=== PATIENT | female | born 1940 | race African-American/Black ===

== ENCOUNTER 2017-03-20 12:36 | Emergency (ER) | payer MEDICARE, MEDICAID | END 2017-03-20 14:43 | disposition home or self-care (01) | LOC: ERS 12:36 | DX: B86 Scabies (principal); E78.5 Hyperlipidemia, unspecified; I11.0 Hypertensive heart disease with heart failure; I50.9 Heart failure, unspecified; E11.9 Type 2 diabetes mellitus without complications; Z87.891 Personal history of nicotine dependence | CPT/HCPCS: 36416; 99283 ==

== ENCOUNTER 2017-07-09 09:39 | Emergency (ER) | payer MEDICARE ==
[2017-07-09 10:39] LABS: Bilirubin Negative (Negative); Blood, Urine Negative (Negative); Clarity CLEAR (Clear); Glucose, Urine (Dipstick) Negative (Negative); Leukocyte Negative (Negative); Nitrite Negative (Negative); Protein, Urine (Dipstick) 30 mg/dL (Neg-Trace); Specific Gravity, Urine 1.022 (1.002-1.036)
[2017-07-09 10:40] LABS: Bacteria/HPF None Seen HPF (None Seen); Hyaline Casts/LPF 0-3 HYALINE CAST LPF (0-3 Hyaline); Squamous Epithelial 0-3 HPF (0-3); WBC/HPF 0-3 HPF (0-3)
[2017-07-09 11:56] LABS: #Eosinphils 0.1 thou/uL (0.0-0.7); #Lymphocytes 2.2 thou/uL (1.20-3.40); #Monocytes 0.5 thou/uL (0.11-0.59); #Neutrophils 4.4 thou/uL (1.40-6.50); %Basophils 0.4 % (0.0-1.0); %Eosinophils 0.9 % (0.0-10.0); %Lymphocytes 30.2 % (21.0-51.0); %Monocytes 7.2 % (0.0-10.0); %Neutrophils 61.3 % (42.0-75.0); Hemoglobin 13.7 g/dL (12.0-16.0); Mean Corpuscular HGB CONC 32.1 g/dL (32.0-36.0); Mean Corpuscular Hemoglobin 29.4 pg (27.0-31.0); Mean Corpuscular Volume 91.5 fl (81.0-99.0); Mean Platelet Volume 7.8 fL (7.4-10.4); Platelet Count 270 thou/uL (130-400); RBC Distribution Width 15.4 % (11.5-14.5); Red Blood Cell (RBC) Count 4.67 mill/uL (4.20-5.40); White Blood Cell (WBC) Count 7.2 thou/uL (4.8-10.8)
[2017-07-09 12:29] LABS: ALT (SGPT) 8 U/L (8-55); AST (SGOT) 11 U/L (5-34); Albumin 4.1 g/dL (3.4-4.8); Alkaline Phosphatase 116 U/L (40-150); Anion Gap 11 mmol/L (10-20); BUN (Urea Nitrogen) 11 mg/dL (9.8-20.1); Bilirubin, Total 0.6 mg/dL (0.2-1.2); Calc. Creatinine Clearance 0 mL/min (70-130); Calcium 9.5 mg/dL (7.8-10.44); Carbon Dioxide 25 mmol/L (23-31); Chloride 108 mmol/L (98-107); Estimated GFR-MDRD 90; Globulin 3.8 g/dL (2.4-3.5); Glucose 109 mg/dL (83-110); Lipase 16 U/L (8-78); Protein, Total 7.9 g/dL (6.0-8.3); Sodium 140 mmol/L (136-145)
--- NOTE | 2017-07-09 14:56 | CT ---
CT ABDOMEN AND PELVIS WITH IV CONTRAST: DATE: 07/09/17. HISTORY: Abdominal pain and lower back pain which started yesterday evening. Back pressure and stomach pressu re when urinating. COMPARISON: 07/27/14. FINDINGS: The lung bases are clear aside from minimal atelectasis present. The heart is mildly enlarged. Vascular calcifications are seen in the abdominal aorta and involving the iliac arteries. There is occlusion of the left common iliac artery. This occlusion was not pres ent on the study in 2014. Post cholecystectomy changes are noted. There are multiple abdominal masses seen throughout the mesentery, the largest conglomeration of mass is seen within the anterior aspect lower abdomen measuring 11.4 cm x 3.8 cm. However, multiple mass es are seen throughout the mesentery including mass adjacent to the lower descending colon and left p ericolic gutter. There are also low-density masses along the anterior and right anterolateral margin s of the liver. Findings are most suggestive of peritoneal carcinomatosis. There is a large heterogeneous mass in the right aspect of the pelvis measuring 9.2 cm x 3.8 cm, whic h is contiguous with a cystic and solid mass in the right anterolateral upper pelvis measuring 7 cm x 4.7 cm. Findings could be related to a right ovarian neoplastic process. There is prominent thickening involving the gastric antrum which is more thickened than expected for incomplete distention. Further evaluation with endoscopy is recommended. There is a small hiatal hernia. There is colonic diverticulosis. There is no evidence of a bowel ob struction at this time. The spleen and pancreas as well as bilateral kidneys demonstrate a normal CT appearance. There are bilateral adrenal masses which were also seen on the prior MRI abdomen on 11/08/15 and MRI c haracteristics most compatible with adrenal adenomas were noted on that exam. The urinary bladder has a normal CT appearance. There is evidence of hysterectomy. Degenerative changes are noted in the spine. IMPRESSION: 1. Peritoneal carcinomatosis with scattered masses seen throughout the abdomen including the upper q uadrants bilaterally, adjacent to the liver, adjacent to descending colon, and in the midline of the lower abdomen/upper pelvis. 2. Heterogeneous mass in the right pelvis which is contiguous with a cystic and solid mass in the up per lateral right pelvis. A right ovarian neoplastic process is a consideration. 3. Thickening involving the gastric antrum and pylorus. This is more thickened than typically expec max for incomplete distention. Further evaluation with endoscopy is suggested. 4. Bilateral renal masses shown to represent adrenal adenomas on the prior MRI in 2016. 5. Cardiomegaly. 6. Colonic diverticulosis. 7. Occlusion of the left common iliac artery. 8. The above findings were discussed with Dr. Mauricio in the emergency department on 07/09/17 at 141 4 hours. CODE CR POS: NING
== END 2017-07-09 15:25 | disposition home or self-care (01) ==
LOC: ERS 09:39
DX: R19.04 Left lower quadrant abdominal swelling, mass and lump (principal); I11.0 Hypertensive heart disease with heart failure; I50.9 Heart failure, unspecified; E11.9 Type 2 diabetes mellitus without complications; E78.5 Hyperlipidemia, unspecified; F32.9 Major depressive disorder, single episode, unspecified; Z87.891 Personal history of nicotine dependence
CPT/HCPCS: 36415; 74177; 80053; 81003; 81015; 83690; 85025

== ENCOUNTER 2017-08-05 13:14 | Outpatient (CLI) | payer MEDICARE, MEDICAID ==
--- NOTE | 2017-08-05 15:56 | RAD ---
SINGLE CONTRAST BARIUM ENEMA: Date: 08-05-17 History: Rectal pain, peritoneal carcinomatosis, incomplete colonoscopy secondary to sigmoid colonic tortuosity. FINDINGS: Review of a recent CT examination of the abdomen and pelvis performed 07-09-17 demonstrates numerous m esenteric masses throughout the abdomen/pelvis, many of which are immediately adjacent to the colon. The cross tie turner supine frontal radiograph of the abdomen/pelvis demonstrates cholecystectomy clips in a non obstructed bowel gas pattern. There is atherosclerotic calcification of the abdominal aorta and the p elvic arterial structures and there are numerous calcifications in the pelvis suggesting phleboliths. A single contrast barium enema was performed. Contrast was administered in a retrograde fashion under gravity from the level of the rectum through the level of the distal small bowel. There is extensive diverticulosis throughout the descending colon and sigmoid colon. There is no obstructing mass within the colonic lumen. There is an area of incomplete opacification i n the region of the cecum inferiorly which is felt to most likely be secondary to extrinsic mass effe ct from a mesenteric lesion located within the right lower quadrant when correlating with the 07-09-17 examination. Secondary to single contrast nature of this exam and marked tortuosity, portions of the sigmoid colon and descending colon are not optimally assessed. This could obstruct a mucosal based l esion, but no obvious mucosal based lesion is seen. There is a probable area of extrinsic mass effect on the lateral aspect of the mid descending colon associated with a mesenteric mass as seen on recen t CT examination. This narrows the lumen of the descending colon, best seen on lateral image 6 of 9. IMPRESSION: 1. No obstructing colonic lesion is seen. There are areas of what appear to be extrinsic mass effect on the colon in the region of the cecum and in the region of the mid descending colon laterally. Thes e findings are felt to represent extrinsic compression from mesenteric masses as seen on recent CT. N o discrete mucosal based mass lesion within the colonic lumen is apparent. Colonic diverticulosis not ed. POS: NING
== END 2017-08-05 13:15 | disposition home or self-care (01) ==
LOC: RAD 13:14
PROVIDERS: ATTEND Internal Medicine Gastroenterology
DX: C78.6 Secondary malignant neoplasm of retroperitoneum and peritoneum (principal); K62.89 Other specified diseases of anus and rectum; K63.89 Other specified diseases of intestine; K63.9 Disease of intestine, unspecified; K57.30 Diverticulosis of large intestine without perforation or abscess without bleeding
CPT/HCPCS: 74270

== ENCOUNTER 2017-08-21 12:47 | Outpatient (CLI) | payer MEDICARE, MEDICAID ==
[2017-08-21 15:25] LABS: #Eosinphils 0.1 thou/uL (0.0-0.7); #Lymphocytes 1.7 thou/uL (1.20-3.40); #Monocytes 0.6 thou/uL (0.11-0.59); #Neutrophils 5.6 thou/uL (1.40-6.50); %Basophils 0.2 % (0.0-1.0); %Eosinophils 1.1 % (0.0-10.0); %Lymphocytes 21.3 % (21.0-51.0); %Monocytes 7.6 % (0.0-10.0); %Neutrophils 69.9 % (42.0-75.0); Hemoglobin 11.2 g/dL (12.0-16.0); Mean Corpuscular HGB CONC 31.2 g/dL (32.0-36.0); Mean Corpuscular Hemoglobin 27.6 pg (27.0-31.0); Mean Corpuscular Volume 88.3 fL (78.0-98.0); Mean Platelet Volume 7.6 fL (7.4-10.4); Platelet Count 525 thou/uL (130-400); RBC Distribution Width 15.6 % (11.5-14.5); Red Blood Cell (RBC) Count 4.05 mill/uL (4.20-5.40)
[2017-08-21 15:44] LABS: Anion Gap 17 mmol/L (10-20); BUN (Urea Nitrogen) 17 mg/dL (9.8-20.1); Calc. Creatinine Clearance 0 mL/min (70-130); Calcium 9.4 mg/dL (7.8-10.44); Carbon Dioxide 21 mmol/L (23-31); Chloride 103 mmol/L (98-107); Estimated GFR-MDRD 68; Glucose 145 mg/dL (83-110); Potassium 5.4 mmol/L (3.5-5.1); Sodium 136 mmol/L (136-145)
== END 2017-08-21 12:48 | disposition home or self-care (01) ==
LOC: LABBT 12:47
PROVIDERS: ATTEND Specialist
DX: Z01.818 Encounter for other preprocedural examination (principal); C56.9 Malignant neoplasm of unspecified ovary
CPT/HCPCS: 80048; 85025; 93005; 93010

== ENCOUNTER 2017-08-22 12:01 | Day surgery (SDC) | payer MEDICARE, MEDICAID ==
[2017-08-21 10:00] VITALS: BMI 22.8
[2017-08-22] MEDS ORDERED: CEFAZOLIN/Water 2 GM/20 ML SYRINGE ONE (12:54)
[2017-08-22] MEDS ORDERED: Ketorolac Tromethamine 30 MG/ML VIAL ONE (12:54)
[2017-08-22] MEDS ORDERED: Propofol 500 MG/50 ML VIAL ONE (14:10)
[2017-08-22] MEDS ORDERED: Fentanyl 100 MCG/2 ML VIAL ONE (14:10)
[2017-08-22] MEDS ORDERED: PROPOFOL 200 MG/20 ML VIAL ONE (14:38)
[2017-08-22] MEDS ORDERED: PHENYLEPHRINE-NS 100 MCG/ML 10 ML SYRINGE ONE (14:38)
[2017-08-22] MEDS ORDERED: Ondansetron HCl/PF 4 MG/2 ML Vial ONE (14:38)
--- NOTE | 2017-08-22 15:31 | RAD ---
ONE VIEW CHEST: HISTORY: Status post surgery. COMPARISON: None. FINDINGS: There appears to be residual barium in multiple left colonic diverticula. Elongation of the aorta. Normal cardiac silhouette. There appears to be a nodule in the left suprahilar region measuring 1.5 cm. Minimal blunting of the right costophrenic angle. Chronic changes in the lung parenchyma are montoya spected. Right-sided MediPort catheter with the distal tip projecting over the superior vena cava. No pneumothorax. IMPRESSION: 1. Right-sided MediPort catheter. No pneumothorax. 2. Left lung nodule, incompletely evaluated. Metastatic lesion is favored until proven otherwise. POS: REBECCA
--- NOTE | 2017-08-25 17:26 | OP ---
DATE OF SERVICE: 08/22/2017 PREOPERATIVE DIAGNOSES: Metastatic ovarian cancer. POSTOPERATIVE DIAGNOSIS: Metastatic ovarian cancer. OPERATION PERFORMED: Placement of right subclavian low-profile power compatible MediPort. SURGEON: Mark Acharya M.D. ANESTHESIA: Total intravenous anesthesia with local using 0.25% Marcaine with epinephrine. INDICATIONS: The patient is a 76-year-old black female. She was recently diagnosed with metastatic ovarian cancer. MediPort placement is requested for chemotherapy administration. DESCRIPTION OF OPERATION: Informed consent was obtained. The patient was taken to the operating mani m where total intravenous anesthesia was obtained with the patient in supine position. Right pericla vicular area was prepped with ChloraPrep and draped in sterile fashion. Local anesthetic was infiltr ated and a large gauge needle was passed under the clavicle in the subclavian vein. Guidewire was pa ssed through the needle and fluoroscopically confirmed to enter the superior vena cava. Additional l ocal anesthetic was infiltrated and transverse incision was created based on needle insertion site. A subcutaneous pocket was dissected inferiorly. Introducer dilator was passed over the guidewire und er fluoroscopic guidance. The guidewire and dilator were removed, and the catheter was passed throug h the introducer. The tip of the catheter was positioned at the atriocaval junction and the catheter was trimmed to the appropriate length and secured to the locking hub of the MediPort. The port was then placed in the subcutaneous pocket where it was secured to the pectoral fascia with 2 interrupted sutures of 3-0 Prolene. The incision was then closed in layers with 3-0 and 4-0 Monocryl. Addition al local anesthetic was infiltrated. The port was cannulated with a Borja needle and it aspirated bl ood freely and was flushed with heparinized saline. Dermabond was placed externally on the skin inci wanda. There were no complications. Blood loss was negligible. The patient tolerated the procedure well and was taken to recovery room in stable condition. FINDINGS: The port was placed uneventfully in the right subclavian vein. A low-profile port was fracisco ected. Her anatomy was unremarkable and the operation was performed without difficulty or blood loss . The patient tolerated the procedure well and was taken to recovery room in stable condition.
== END 2017-08-22 16:05 | disposition home or self-care (01) ==
LOC: SDC 12:01
PROVIDERS: ATTEND Specialist
PROC: 02HV33Z Insertion of Infusion Device into Superior Vena Cava, Percutaneous Approach (ICD-10-PCS; principal; 2017-08-22)
DX: C56.9 Malignant neoplasm of unspecified ovary (principal); C79.9 Secondary malignant neoplasm of unspecified site; E78.5 Hyperlipidemia, unspecified; I10 Essential (primary) hypertension; E11.9 Type 2 diabetes mellitus without complications; M19.90 Unspecified osteoarthritis, unspecified site; Z87.891 Personal history of nicotine dependence; Z79.84 Long term (current) use of oral hypoglycemic drugs; Z79.899 Other long term (current) drug therapy; Z88.2 Allergy status to sulfonamides; Z88.5 Allergy status to narcotic agent; Z88.8 Allergy status to other drugs, medicaments and biological substances
CPT/HCPCS: 36561; 71045; C1788; J0131; J1885; J2405; J2704; J3010

== ENCOUNTER 2017-08-27 09:28 | Day surgery (SDC) | payer MEDICARE, MEDICAID ==
[2017-08-27 09:48] VITALS: BP 189/88; TEMP 98.2
[2017-08-27] MEDS ORDERED: Famotidine/PF 20 mg/2ml Vial SLOW IVP SCH (10:15)
[2017-08-27] MEDS ORDERED: PALONOSETRON HCL 0.05 MG/ML 5 ML VIAL IVP SCH (10:15)
[2017-08-27] MEDS ORDERED: Pegfilgrastim 6 MG/0.6 ML Delivery Kit SQ SCH (10:15)
[2017-08-27] MEDS ORDERED: diphenhydrAMINE 50 MG/ML VIAL IVP SCH (10:15)
[2017-08-27] MEDS ORDERED: Dexamethasone 10 MG/ML VIAL SLOW IVP SCH (10:15)
[2017-08-27] MEDS ORDERED: CARBOPLATIN IVPB SCH (10:30)
[2017-08-27] MEDS ORDERED: SODIUM CHLORIDE 0.9% IVPB SCH (10:30)
[2017-08-27] MEDS ORDERED: cloNIDine 0.2 MG TAB PO SCH (14:30)
== END 2017-08-27 16:56 | disposition home or self-care (01) ==
LOC: ONC/OP 09:28
PROVIDERS: ATTEND Internal Medicine Hematology & Oncology
DX: Z51.11 Encounter for antineoplastic chemotherapy (principal); C56.1 Malignant neoplasm of right ovary; C78.89 Secondary malignant neoplasm of other digestive organs; E11.9 Type 2 diabetes mellitus without complications; E78.00 Pure hypercholesterolemia, unspecified; I10 Essential (primary) hypertension; M19.90 Unspecified osteoarthritis, unspecified site; F41.9 Anxiety disorder, unspecified; F32.9 Major depressive disorder, single episode, unspecified; K21.9 Gastro-esophageal reflux disease without esophagitis; I73.9 Peripheral vascular disease, unspecified; F17.200 Nicotine dependence, unspecified, uncomplicated; Z88.1 Allergy status to other antibiotic agents; Z88.5 Allergy status to narcotic agent
CPT/HCPCS: 36415; 80053; 82248; 83615; 84100; 84550; 96367; 96375; 96377; 96413; 96415; 96417; J1100; J1200; J1453; J1642; J2469; J2505; J7050; J9045; J9267; S0028

== ENCOUNTER 2017-09-17 11:38 | Day surgery (SDC) | payer MEDICARE, MEDICAID ==
[2017-09-17] MEDS ORDERED: PALONOSETRON HCL 0.05 MG/ML 5 ML VIAL IVP SCH (12:00)
[2017-09-17] MEDS ORDERED: Famotidine/PF 20 mg/2ml Vial SLOW IVP SCH (12:00)
[2017-09-17] MEDS ORDERED: Dexamethasone 10 MG/ML VIAL SLOW IVP SCH (12:00)
[2017-09-17] MEDS ORDERED: diphenhydrAMINE 50 MG/ML VIAL IVP SCH (12:00)
[2017-09-17] MEDS ORDERED: Sodium Chloride 0.9% 20 ML ONE (12:00)
[2017-09-17] MEDS ORDERED: Pegfilgrastim 6 MG/0.6 ML Delivery Kit SQ SCH (12:00)
[2017-09-17] MEDS ORDERED: SODIUM CHLORIDE 0.9% IVPB SCH (12:30)
[2017-09-17] MEDS ORDERED: CARBOPLATIN IVPB SCH (12:30)
[2017-09-17 15:50] VITALS: BP 153/69; TEMP 98.5
== END 2017-09-17 17:32 | disposition home or self-care (01) ==
LOC: ONC/OP 11:38
PROVIDERS: ATTEND Internal Medicine Hematology & Oncology
DX: Z51.11 Encounter for antineoplastic chemotherapy (principal); C56.1 Malignant neoplasm of right ovary; C78.89 Secondary malignant neoplasm of other digestive organs; E11.9 Type 2 diabetes mellitus without complications; E78.00 Pure hypercholesterolemia, unspecified; M19.90 Unspecified osteoarthritis, unspecified site; F41.9 Anxiety disorder, unspecified; F32.9 Major depressive disorder, single episode, unspecified; K21.9 Gastro-esophageal reflux disease without esophagitis; I73.9 Peripheral vascular disease, unspecified; F17.200 Nicotine dependence, unspecified, uncomplicated; Z88.5 Allergy status to narcotic agent; Z88.1 Allergy status to other antibiotic agents
CPT/HCPCS: 36415; 80053; 82248; 83615; 84100; 84550; 96367; 96375; 96377; 96413; 96415; A4216; J1100; J1200; J1453; J1642; J2469; J2505; J7050; J9045; J9267; S0028

== ENCOUNTER 2017-09-18 22:14 | Observation (INO) | payer MEDICARE, MEDICAID ==
[2017-09-18 23:04] LABS: Hemoglobin 11.3 g/dL (12.0-16.0); Mean Corpuscular HGB CONC 31.2 g/dL (32.0-36.0); Mean Corpuscular Hemoglobin 26.6 pg (27.0-31.0); Mean Corpuscular Volume 85.1 fL (78.0-98.0); Mean Platelet Volume 6.9 fL (7.4-10.4); Platelet Count 490 thou/uL (130-400); RBC Distribution Width 16.8 % (11.5-14.5); Red Blood Cell (RBC) Count 4.27 mill/uL (4.20-5.40); White Blood Cell (WBC) Count 20.3 thou/uL (4.8-10.8)
[2017-09-18 23:21] LABS: Band 6 % (5-11); Lymphocytes 4 % (21-51); MDiff Complete? YES; Monocytes 4 % (0-10); Neutrophil 86 % (42-75); PLT Morphology Comment Appears Increased
[2017-09-18 23:24] LABS: ALT (SGPT) 7 U/L (8-55); AST (SGOT) 13 U/L (5-34); Albumin 3.8 g/dL (3.4-4.8); Alkaline Phosphatase 119 U/L (40-150); Anion Gap 18 mmol/L (10-20); BUN (Urea Nitrogen) 24 mg/dL (9.8-20.1); Bilirubin, Total 0.4 mg/dL (0.2-1.2); Calc. Creatinine Clearance 0 mL/min (70-130); Calcium 10.1 mg/dL (7.8-10.44); Carbon Dioxide 23 mmol/L (23-31); Chloride 102 mmol/L (98-107); Estimated GFR-MDRD 72; Globulin 4.7 g/dL (2.4-3.5); Glucose 175 mg/dL (83-110); Potassium 4.4 mmol/L (3.5-5.1); Protein, Total 8.5 g/dL (6.0-8.3); Sodium 139 mmol/L (136-145)
[2017-09-18 23:29] LABS: CKMB 0.9 ng/mL (0-6.6); Troponin I Less than 0.010 ng/mL (< 0.028)
--- NOTE | 2017-09-18 23:54 | RAD ---
PORTABLE CHEST ONE VIEW: 09/18/17 at 10:54 p.m. HISTORY: Chest pain. FINDINGS: Comparison made with exam of 08/22/17. The heart size is borderline. A right subclavian Port-A-Cath remains in place. No lobar consolidation , pneumothoraces or pleural effusions are seen. The nodular density in the left lung noted on the pre vious study appears less prominent. The residual barium in the colonic diverticula in the left upper quadrant are again seen but decrease in quantity. IMPRESSION: No acute process. POS: REBECCA
[2017-09-19] MEDS ORDERED: Aspirin 325 MG TAB ONE (02:51)
[2017-09-19] MEDS ORDERED: Cefepime 2 GM VIAL ONE (02:51)
[2017-09-19] MEDS ORDERED: Nitroglycerin 2% Ointment 1 INCH/1 GM Packet ONE (02:51)
[2017-09-19 05:14] LABS: Troponin I 0.014 ng/mL (< 0.028)
[2017-09-19 06:03] VITALS: BMI 21.5
[2017-09-19 08:00] LABS: Troponin I Less than 0.010 ng/mL (< 0.028)
[2017-09-19] MEDS ORDERED: Acetaminophen 325 MG TAB PO PRN (09:02)
[2017-09-19] MEDS ORDERED: hydrALAZINE 20 MG/ML VIAL SLOW IVP PRN (09:02)
[2017-09-19] MEDS ORDERED: Benzonatate 100 MG CAP PO PRN (09:02)
[2017-09-19] MEDS ORDERED: Dextrose 50% Abboject 50 ML SYRINGE SLOW IVP PRN (09:02)
[2017-09-19] MEDS ORDERED: Loratadine 10 MG TAB PO PRN (09:02)
[2017-09-19] MEDS ORDERED: cloNIDine 0.1 MG TAB PO PRN (09:02)
[2017-09-19] MEDS ORDERED: Zolpidem Tartrate 5 MG TAB PO PRN (09:02)
[2017-09-19] MEDS ORDERED: Diabetic Tussin 200 MG/10 ML UDCUP PO PRN (09:02)
[2017-09-19] MEDS ORDERED: Senokot 8.6 MG TAB PO PRN (09:02)
[2017-09-19] MEDS ORDERED: HumaLOG 300 UNITS/3 ML VIAL SC PRN ×2 (09:02)
[2017-09-19] MEDS ORDERED: Ondansetron HCl/PF 4 MG/2 ML Vial IVP PRN (09:02)
[2017-09-19] MEDS ORDERED: Bisacodyl 5 MG TAB PO PRN (09:02)
[2017-09-19] MEDS ORDERED: Dextrose 5% in Water 1,000 ML IV PRN (09:02)
[2017-09-19] MEDS ORDERED: Nitroglycerin 0.4 MG TAB (25 Tab Bottle) SL PRN (09:02)
--- NOTE | 2017-09-19 09:39 | CT ---
PRELIMINARY REPORT/[facility]/EMERGENTY AFTER-HOURS PROCEDURE CT Angiography Chest With Intravenous Contrast CLINICAL HISTORY: 76 years old, female; Pain; Chest pain; Patient HX: Er 20; F76 reports to ed via ems C/O chest pain. Pt reports cp and pressure that started suddenly today after waking up from her nap around 19: 00-20: 00. Pt reports the pain has been persistent since waking up from her nap and the pain is centered to her sub sternal region. Pt reports is undergoing chemo for ovarian cancer. Last chemo iv treatment was yesterday. TECHNIQUE: Axial computed tomographic angiography images of the chest with intravenous contrast using pulmonary embolism protocol. MIP reconstructed images were created and reviewed. COMPARISON: No relevant prior studies available. FINDINGS: Pulmonary arteries: No pulmonary embolism. Aorta: Atherosclerotic disease of the thoracic aorta, without evidence of aneurysm or dissection. Lungs: 9 mm noncalcified nodule or small consolidation within the left upper lobe (series 2, image 26 ). Minimal bibasilar atelectasis and/or scarring. Pleural space: Normal. No significant effusion. No pneumothorax. Heart: Moderate three-vessel coronary artery atherosclerotic calcification. Mild four-chamber cardiac enlargement. Bones/joints: Multilevel thoracic spine degenerative changes. No acute fracture. No dislocation. Soft tissues: Normal. Lymph nodes: Normal. Liver: Abnormal low attenuation nodularity along the left hepatic lobe surface, the largest measuring approximately 10 mm, possibly metastases. Adrenals: Enlarged adrenal glands bilaterally, the left measuring 17 mm in diameter and the right huma suring 14 mm in diameter, not definitively characterized on this study. Intraperitoneal space: Metallic densities within the left upper abdomen of uncertain etiology. IMPRESSION: 1. No pulmonary embolism. 2. 9 mm noncalcified nodule or small consolidation within the left upper lobe (series 2, image 26). S mall pneumonia or carcinoma possible. Recommend further evaluation. 3. Abnormal low attenuation nodularity along the left hepatic lobe surface, the largest measuring maggie roximately 10 mm, possibly metastases. Recommend further evaluation. 4. Enlarged adrenal glands bilaterally, the left measuring 17 mm in diameter and the right measuring 14 mm in diameter, not definitively characterized on this study. Recommend further evaluation. 5. Incidental/non-acute findings are described above. Thank you for allowing us to participate in the care of your patient. Dictated and Authenticated by: Andrés Lion MD 09/19/2017 1:26 AM Central Time ([place] & [place]) FINAL REPORT CT ANGIOGRAM CHEST WITH CONTRAST: HISTORY: Evaluate for pulmonary embolism. Chest pain. COMPARISON: Chest radiograph from the prior day. TECHNIQUE: CT angiogram chest performed after the intravenous administration of contrast, with 3D rendering prov ided. FINDINGS/IMPRESSION: The findings and impression are concordant with the preliminary report.
[2017-09-19] MEDS ORDERED: Stress 600 With Zinc 1 TAB PO SCH (10:00)
[2017-09-19] MEDS ORDERED: cloNIDine 0.2 MG TAB PO SCH (10:00)
[2017-09-19] MEDS ORDERED: Simvastatin 5 MG TAB PO SCH (10:00)
[2017-09-19] MEDS ORDERED: Fish Oil 1,000 MG CAP PO SCH (10:00)
[2017-09-19] MEDS ORDERED: Gabapentin 300 MG CAP PO SCH (10:00)
[2017-09-19] MEDS ORDERED: Multivit, Therapeutic 1 TAB PO SCH (10:00)
[2017-09-19] MEDS: Sodium Chloride 0.9% 1,000 ML IV SCH (10:13)
[2017-09-19] MEDS ORDERED: ISOVUE-370 76%-LOCM 1 ML ONE (11:50)
--- NOTE | 2017-09-19 14:12 | HP ---
DATE OF ADMISSION: 09/19/2017 PRIMARY CARE PHYSICIAN: Jojo Quiroga M.D. CHIEF COMPLAINT: Chest pain. HISTORY OF PRESENT ILLNESS: Ms. Kessler is a very pleasant 76-year-old -[place] female with past medical history of recent diagnosis of stage III ovarian cancer who has been started on chemothe rapy recently, presented to the emergency room with above-mentioned complaint. History is mainly obt ained by the patient herself and electronic medical records have been reviewed. The patient's last c hemotherapy treatment was on 09/17/2017 and she went Neulasta placement on 09/18/2017, that was just yesterday. She has finished 2 cycles of chemotherapy so far. She is under the care of Dr. Perkins. She had a MediPort placement by Dr. Acharya in 08/25/2017. The patient reports that she has always had acid reflux issues. Yesterday, she was lying down when s he had sudden sharp pain that started low in her belly and went up her chest in the center. She stat es that she does not know how to describe the pain, but it was quite significant and woke her up from the sleep. It was in the middle of the day. She had some difficulty breathing at that time, but de nies any nausea or vomiting. She denies any arm or jaw claudication. She denies any radiation of th e pain. She states that she has had some symptoms in the past, but they are mainly with swallowing o f the food. She has been having acid reflux symptoms for years and has been noticing lately that she has been having difficulty swallowing the food down and feels that the food sometimes gets stuck in her chest and it hurts. She has otherwise no recent illnesses and has been feeling very well. She d enies any shortness of breath, cough, fever, chills, runny nose or sore throat. Upon presentation to the emergency room, she was hemodynamically stable with blood pressure of 135/73 and a pulse of 100. She was saturating 97% on room air and temperature 98.8. Her initial workup in cluded a 12-lead EKG, which did not show any significant changes, but some nonspecific T-wave changes . Normal sinus rhythm at 100 beats per minute. Her D-dimer was found to be elevated, so she underwe nt a CT angio in the emergency room to rule out PE. It was negative for pulmonary embolism, but was concerning for possible pneumonia versus nodular lesion in the left upper lobe, possible carcinoma. She was given empiric antibiotics in the form of cefepime and Levaquin and is now being admitted for further evaluation and care. She was found to have leukocytosis with WBCs of 20 with neutrophils of 84%, but in light of recent Neulasta yesterday, it is not clear if this is indicative of any active i nfection. PAST MEDICAL HISTORY: 1. 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 2. Diabetes mellitus. 3. Hypertension. 4. Dyslipidemia. 5. Arthritis. 6. Anxiety and depression. 7. Peripheral vascular disease. 8. Gastroesophageal reflux disease. PAST SURGICAL HISTORY: 1. Gallbladder removal. 2. Hysterectomy. 3. Tonsillectomy in 1949. 4. Colonoscopy in 2008. 5. Cardiac catheterization 1997 showed mild coronary artery disease. 6. Excision of lipoma over the right side. FAMILY HISTORY: Mother had a history of breast cancer. Father had lung cancer. Mother had hyperten wanda. One sibling with stomach cancer. SOCIAL HISTORY: She is and has 4 children. She lives with her family. She smokes half pack of cigarettes per day. She has no history of drug or alcohol abuse. ALLERGIES: CODEINE which causes nausea. CURRENT MEDICATIONS: Vitamin B complex, omega 3 fish oil daily, multivitamin daily, moexipril 15 mg daily, gabapentin 600 t.i.d., vitamin D3 1000 daily, Zocor 10 mg daily, potassium chloride 20 mEq alec ly, Farber as needed, Desyrel 50 mg at bedtime, clonidine 0.2 mg p.o. b.i.d. REVIEW OF SYSTEMS: A 12-point review of systems was done. It is negative except for those mentioned in the history and physical. LABORATORY DATA: CBC shows WBCs at 20.3, platelet count of 490, 86% neutrophils, hemoglobin 11.3. C oagulation studies showed a D-dimer elevated at 3.63. Serum chemistries show BUN of 21, creatinine 0 .9 with estimated GFR of 72. Her cardiac enzymes, troponin less than 0.010 x3. Her globulin slightl y elevated to 4.7. Chest x-ray by my review has no evidence to suggest any pleural effusion, edema o r infiltrate. CT angio is negative for any pulmonary embolism. There is a question of left lower lo be carcinomatous lesion versus pneumonia. Twelve lead EKG by my review shows nonspecific T-wave rosales ges, but sinus rhythm without any ST depression or elevation. PHYSICAL EXAMINATION: VITAL SIGNS: Most recent vital signs, temperature 98.6, pulse of 96, respirations 16, saturating 96% on room air, blood pressure 154/83. GENERAL: No acute distress, awake, alert, oriented x3. HEENT: Mucous membrane is moist and pink. No oral thrush. No oropharyngeal exudate or erythema. H ead is normocephalic, atraumatic. Pupils equal, reactive to light and accommodation. Extraocular mo vement intact. NECK: Supple without any lymphadenopathy, JVD or bruit. CHEST: Clear to auscultation without any wheezing, rales or rhonchi. Rhythm is regular without any murmur, rubs or gallops. ABDOMEN: Soft, nontender, nondistended, positive bowel sounds. She is tender to palpation in the ep igastric region and left upper quadrant. Epigastric region is more tender than the other areas. No suprapubic tenderness. EXTREMITIES: Free of any cyanosis, clubbing, or edema. NEUROLOGIC: Nonfocal. SKIN: Free of any rashes or bruises. Feels warm and dry to touch. PSYCHIATRIC: Normal affect. IMPRESSION AND PLAN: 1. Chest pain. Symptoms sound more concerning for gastroesophageal reflux disease versus esophagiti s or gastritis. The patient is having epigastric tenderness and getting symptoms of dysphagia. I do not believe that the patient has pneumonia at this time. I do not believe she has acute coronary sy ndrome. She never has had a cardiac workup done and is on chemotherapy. We will go ahead and get an echocardiogram for now. Avoid aspirin for now given her significant gastroesophageal reflux disease symptoms. We will consult request consultation with Gastroenterology for possible EGD to check for her symptoms of dysphagia. She most likely will need endoscopy with biopsy to rule out Navarrete's eso phagus as well. She will rule out esophageal compression from any extrinsic lymph nodes or masses gi rd her history of cancer. She is currently hemodynamically stable. We will check her lipid panel a s well. We will add a proton pump inhibitor to see if it will help with her GERD symptoms. 2. Leukocytosis. This is secondary to her Neulasta infusion yesterday. No signs or symptoms to sug gest infection. We will not institute antibiotics at this time, but obtain urinalysis as well as uri ne culture and blood culture. 3. Left upper lobe opacity. The patient clinically does not seem to have any pneumonia. The possib ility of carcinoma remains. We will consult Oncology for this reason as well as to make sure that th e patient does not need to be on antibiotics at this time. 4. Diabetes mellitus type 2. Restart home medications and add insulin sliding scale. Frequent Accu -Cheks. 5. Dyslipidemia. Resume her home medication of Zocor. 6. Hypertension, currently controlled. We will restart her moexipril for now as well as clonidine. 7. Deep venous thrombosis and gastrointestinal prophylaxis. 8. Code status: FULL CODE. Discussed with the patient. 9. P.r.n. medication order. DISPOSITION: Ms. Kessler is currently being admitted to the hospital for chest pain workup. Estimat ed length of stay is less than 2 midnights at this time.
[2017-09-19 14:27] LABS: Cardiac Risk 4.3 (Less than 4.5)
[2017-09-19] MEDS: Gabapentin 300 MG CAP PO SCH ×3 (14:55→22:07)
[2017-09-19 16:21] LABS: Bilirubin Negative (Negative); Blood, Urine Negative (Negative); Clarity CLEAR (Clear); Glucose, Urine (Dipstick) Negative (Negative); Leukocyte Negative (Negative); Nitrite Negative (Negative); Protein, Urine (Dipstick) 30 mg/dL (Neg-Trace); Specific Gravity, Urine 1.031 (1.002-1.036); Urobilinogen 0.2 mg/dL (0.2-1.0)
[2017-09-19 16:24] LABS: Bacteria/HPF None Seen HPF (None Seen); Hyaline Casts/LPF 7-10 HYALINE CAST LPF (0-3 Hyaline); Pathc Cast-AUWi Flag 1.74 (0-2.49); RBC/HPF 0-3 HPF (0-3); WBC/HPF 0-3 HPF (0-3)
--- NOTE | 2017-09-19 16:28 | CON ---
DATE OF CONSULTATION: 09/19/2017 REASON FOR CONSULTATION: Ovarian cancer. HISTORY OF PRESENT ILLNESS: Checo is a pleasant 76-year-old female with stage III ovarian cancer w bruna had cycle 2 of carboplatin and Taxol on 09/17/2017. She presented to the emergency mani this morning after having some sharp pain in her chest, it woke her up from her sleep. She does campos ve a history of reflux and has seen Dr. Her in the past. Had a recent EGD that showed gastritis an d Navarrete's esophagus. On presentation to the emergency room, she had a CT angio of her chest perfor med which showed no pulmonary emboli. Her white count was 20.3 with 86% neutrophils. She was admitt ed on observation for chest pain. The patient has been tolerating chemo. She presented with signifi cant abdominal discomfort and has been taking as needed [place] several times a day. Pain has diminish ed in starting treatment. She does complain of opiate associated constipation. She takes Dulcolax a nd Fleets enema routinely. She denies any complaints at this time. PAST MEDICAL HISTORY: 1. Stage III ovarian cancer. 2. Constipation from abdominal masses and narcotic use. 3. Gastroesophageal reflux disease. 4. Diabetes. 5. High blood pressure. 6. High cholesterol. 7. Peripheral vascular disease. 8. Anxiety. PAST SURGICAL HISTORY: 1. Cholecystectomy. 2. Hysterectomy. 3. Tonsillectomy. ALLERGIES: BACTRIM and CODEINE. HOME MEDICATIONS: 1. Clonidine daily 2. Gabapentin 600 mg t.i.d. 3. Glipizide 5 mg t.i.d. 4. Hydrocodone 5/325 p.r.n. 5. Moexipril 50 mg daily. 6. Prilosec daily. 7. Potassium chloride 20 mEq daily. 8. Simvastatin 20 mg daily. 9. Trazodone 50 mg daily. 10. Zofran p.r.n. FAMILY HISTORY: Mother had breast cancer. SOCIAL HISTORY: . Has 4 children, lives with her daughter. Current everyday smoker. No alc ohol or illicit drug use. REVIEW OF SYSTEMS: Ten point review of systems is negative except for noted in HPI. PHYSICAL EXAMINATION: VITAL SIGNS: Temperature is 98.6, pulse is 98, respiratory rate 16, BP is 154/83, she is 98% on room air. GENERAL: Well-developed, well-nourished female in no acute distress. HEENT: Normocephalic, atraumatic. Pupils are equal and reactive to light. NECK: Supple. CARDIOVASCULAR: Regular rate and rhythm. LUNGS: Clear. ABDOMEN: Soft, nontender, bowel sounds are positive. EXTREMITIES: No clubbing, cyanosis or edema. SKIN: No rash. HEMATOLOGIC: No petechia or purpura. NEUROLOGIC: Nonfocal. PSYCHIATRIC: She is alert and oriented. PERTINENT LABORATORY DATA AND X-RAYS: Current WBCs are 20.3, hemoglobin 11.3, hematocrit 36.3, plate let count is 490,000, 86% neutrophils, 6% bands, 4% lymphocytes. Sodium is 139, potassium 4.2, chlor cristino 102, CO2 is 23, BUN is 24, creatinine 0.91, calcium 10.1, bilirubin is 0.4, AST 13, ALT 7, alkali ne phosphatase is 119, serum total protein 8.5, albumin 3.8, globulin 4.7. ASSESSMENT AND PLAN: 1. Stage III ovarian cancer and chemotherapy with carboplatin and Taxol, recent cycle 2 completed week with Neulasta support. 2. History of esophageal reflux disease with recent EGD showing gastritis and Navarrete's esophagus. 3. Constipation from her ovarian cancer and narcotic usage. DISCUSSION: I felt that the patient's chest pain is not cardiac in nature, but likely secondary to h er chronic reflux. GI has been consulted for their opinion. The patient's labs are appropriate with no evidence of infection. Her leukocytosis is due to IV steroids received during treatment. We mariangel l continue to provide supportive care. Thank you for the consult.
[2017-09-19] MEDS ORDERED: Polyethylene Glycol 3350 17 GM Packet PO SCH (18:00)
[2017-09-19] MEDS ORDERED: traZODone HCl 50 MG TAB PO SCH (21:00)
[2017-09-19] MEDS: HYDROcodone/Acetaminophen 5/325 mg Tablet PO PRN (21:57)
[2017-09-19] MEDS: cloNIDine 0.2 MG TAB PO SCH (21:59)
--- NOTE | 2017-09-19 23:21 | CON ---
DATE OF CONSULTATION: 09/19/2017 REASON FOR CONSULTATION: Dysphagia and GERD. CONSULTING PHYSICIAN: Dr. Nona Mitchell. HISTORY OF PRESENT ILLNESS: The patient is a 76-year-old -[place] female with past medical h istory of stage III ovarian cancer status post chemotherapy (carboplatin and Taxol with most recent a dministration 2 days ago), congestive heart failure, diabetes, hypertension, hyperlipidemia, peripher al vascular disease and anxiety, presenting with complaints of chest pain. She had recently gone her most recent round of chemotherapy on 09/17/2017 with experiencing acute onset of midepigastric/subst ernal chest pain the following day that woke her from sleep. She described this pain as sharp, stabb ing in nature, located within the midepigastric region, nonradiating, intermittent and would reach of severity of 5-6/10. There were no clear alleviating or exacerbating factors; however, she does stat e that this pain is similar to the acid reflux symptoms she has had in the past. When concerning her acid reflux symptoms, she characterizes that as episodes of substernal pyrosis, regurgitation and ac id taste in her mouth. This will occur intermittently, but will occur more frequently with tomato ba sed products and spicy, greasy foods. She had recently been on famotidine for roughly the last 1-2 y ears, but was recently changed from famotidine to omeprazole approximately 1-[address] Her after her upper endoscopy. While on the omeprazole, she has had fairly good control of her symptoms until the episode yesterday. She also endorses intermittent symptoms of dysphagia characterized as "the food is sitting heavy in my stomach." This will usually occur with liquids rather than solids b ut does occur with both liquids and solids on an intermittent basis occurring approximately 1-2 times per week. This dysphagia does not have any clear exacerbating factors, but is better with administr ation of acid suppression. She does complain of some lower abdominal discomfort for which she has be en taking [place] several times a day with resultant constipation. Concerning her constipation, she wi ll have approximately one solid bowel movement every 1-2 days that are associated with increased stra ining in order to defecate. This has primarily been present since starting chemotherapy and taking n arcotic medications secondary to her ovarian cancer. Right now, she does take Dulcolax and Fleets en emas routinely to help with defecation, but still has problems with constipation. She currently rula es any nausea, vomiting, fevers, chills, odynophagia, weight loss, GI bleeding or diarrhea. REVIEW OF SYSTEMS: A 10 category review of systems was obtained with all responses negative except f or the pertinent positives as listed in the HPI. PAST MEDICAL HISTORY: As per HPI. PAST SURGICAL HISTORY: Cholecystectomy, hysterectomy, and tonsillectomy. FAMILY HISTORY: Denies any GI malignancies. SOCIAL HISTORY: She continued to smoke daily, but denies any alcohol or illicit drug use. OUTPATIENT MEDICATIONS: Reviewed. ALLERGIES: BACTRIM and CODEINE. PHYSICAL EXAMINATION: VITAL SIGNS: Temperature 98.4, pulse 102, blood pressure 126/69, respiratory rate 20, satting 95% on room air. GENERAL: The patient is lying in bed in no acute distress. Alert and oriented x4. NECK: Supple. No JVD noted. CARDIOVASCULAR: Tachycardic rate, but regular rhythm. No discernible murmurs, gallops or rubs. RESPIRATORY: Clear to auscultation bilaterally with no discernible wheezes or rales. ABDOMEN: Normoactive bowel sounds, soft, nondistended. Tenderness to palpation in the midepigastric , suprapubic and right lower quadrants. EXTREMITIES: No cyanosis, clubbing or edema. LABORATORY DATA: CBC with white blood cell count of 20.3, hemoglobin 11.3, hematocrit 36.3 and plate lets 490. Chemistry with sodium of 139, potassium 4.4, chloride 102, CO2 23, BUN 24, creatinine 0.91 , glucose 175, AST 13, ALT 7, alkaline phosphatase 119, total bilirubin 0.4, albumin 3.8, D-dimer 3.6 3. IMAGING DATA: Chest x-ray obtained on 09/18/2017 showed a right subclavian Port-A-Cath in place. No evidence of lobar consolidation. A CT of the chest obtained on 09/19/2017 showed a 9 mm noncalcifie d nodule with possible consolidation in the left upper lobe, cardiomegaly, and coronary artery diseas e was also noted. Low attenuation along the left hepatic lobe was also seen concerning for metastati c disease. ASSESSMENT AND PLAN: The patient is a 76-year-old -[place] female with past medical history of stage III ovarian cancer, currently undergoing chemotherapy, congestive heart failure, diabetes, h ypertension, hyperlipidemia, peripheral vascular disease and anxiety, presenting with gastroesophagea l reflux disease and constipation. 1. Gastroesophageal reflux disease: The patient is presenting with a longstanding history of acid r eflux that has been present for the last 3-4 years, characterized as substernal pyrosis, regurgitatio n and intermittent acid taste in the back of her mouth. This had been controlled until recently when she was transferred from famotidine to omeprazole, but has been having fairly decent control of her symptoms while on this new medication, it is unknown upon interview whether or not she is taking this medication appropriately before food as the patient could not recall taking the medication nor what she had eaten for dinner than the prior day to admission. When describing her chest pain, she pointe d more towards the mid epigastric region and at this time her symptoms are more consistent with inter mittent acid reflux, brought on by the consumption of a spicy/greasy meal the day prior. She did hav e an upper endoscopy performed on 08/05/2017, which showed a large hiatal hernia measuring approximat bernardo 4 cm as well as scattered islands of salmon-colored mucosa measuring in their maximum diameter ap proximately 1 cm. 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 However, given her age and [facility] and the length of Navarrete's esophagus, the likelihood of progression to adenocarcinoma is extrem bernardo low. Biopsies obtained from the gastric mucosa showed chronic inactive gastritis without the pre sence of H. pylori. RECOMMENDATIONS: 1. We would continue omeprazole/pantoprazole 40 mg daily 30-45 minutes prior to meal consumption in the morning. 2. Would maintain strict antireflux precautions including avoiding trigger foods and maintaining an upright posture for at least 2 hours after meal consumption. 3. Would consider having patient sitting up in bed at night when sleeping to facilitate gravity drai nage and lessened exacerbations of acid reflux. 4. I would continue this regimen for this particular patient for the next 2-3 weeks and if she is st ill having problems, we will follow the patient up in the GI Clinic for further evaluation. CONSTIPATION: The patient is also presenting with significant constipation characterized as having o ne solid bowel movement every 1-2 days that has been difficult to pass and will require intermittent straining and/or abdominal pressure to facilitate defecation. She has been on a regimen of Dulcolax and Fleet enemas which have moderately controlled her constipation, but given her frequent narcotic u se related to the stage III ovarian cancer, this may not necessarily be enough. RECOMMENDATIONS: 1. We would discontinue the use of MiraLax, but instead substitute MiraLax 1 capful nightly before b edtime for constipation. 2. Would use the enemas as needed for constipation. 3. Would attempt to minimize any narcotic use to avoid constipation altogether. We will continue to follow. Please call with any additional questions.
[2017-09-20] MEDS: Sodium Chloride 0.9% 1,000 ML IV SCH (05:52)
[2017-09-20] MEDS: HYDROcodone/Acetaminophen 5/325 mg Tablet PO PRN (05:56)
[2017-09-20] MEDS ORDERED: Simvastatin 5 MG TAB PO SCH (09:00)
[2017-09-20] MEDS ORDERED: Polyethylene Glycol 3350 17 GM Packet PO SCH (09:00)
[2017-09-20] MEDS ORDERED: Fish Oil 1,000 MG CAP PO SCH (09:00)
[2017-09-20] MEDS ORDERED: MOEXIPRIL HCL 15 MG PO SCH (09:00)
[2017-09-20] MEDS ORDERED: Stress 600 With Zinc 1 TAB PO SCH (09:00)
[2017-09-20] MEDS ORDERED: Multivit, Therapeutic 1 TAB PO SCH (09:00)
[2017-09-20] MEDS: Gabapentin 300 MG CAP PO SCH (09:37)
[2017-09-20] MEDS: cloNIDine 0.2 MG TAB PO SCH (09:38)
[2017-09-20 11:30] VITALS: BP 105/66; TEMP 97.6
--- NOTE | 2017-09-20 21:15 | DIS ---
DATE OF ADMISSION: 09/19/2017 DATE OF DISCHARGE: 09/20/2017 CONDITION AT THE TIME OF DISCHARGE: Stable and improved. DISCHARGE DIAGNOSES: 1. Chest pain secondary to severe gastroesophageal reflux disease. 2. History of recent ovarian cancer, currently on chemotherapy. 3. Diabetes mellitus. 4. Hypertension. 5. Dyslipidemia. 6. Arthritis. 7. Anxiety. 8. Peripheral vascular disease. DISCHARGE MEDICATIONS: Remain the same as admission medication. Please see admission history and ph ysical dictated by myself. New medication: Protonix 40 mg daily. INHOUSE CONSULTATIONS: 1. Oncology, Jojo Bolton APRN, for Dr. Perkins. 2. Gastroenterology, Hola Evans MD PROCEDURES DONE IN THE HOSPITAL: CT angio of the thorax, which is negative for any pulmonary embolis m. There is some question of left upper lobe noncalcified nodule or small consolidation, pneumonia v ersus carcinoma. PRIMARY CARE PHYSICIAN: Jojo Quiroga M.D. HISTORY OF PRESENTING ILLNESS: Mr. Kessler is a very pleasant 76-year-old female who was recently di agnosed with ovarian cancer and started on chemotherapy, who presented to the emergency room with com plaints of chest pain. She was hemodynamically stable at the time of presentation. Cardiac enzymes and EKG and chest x-ray were unremarkable. She had elevated D-dimer: Most likely secondary to her c ancer, but she underwent a CT angio in the emergency room to rule out PE, nevertheless. This was neg ative. She was admitted for further workup. Echocardiogram was ordered. Please see admission histo ry and physical for further details dictated by myself for more details. HOSPITAL COURSE: The patient had no symptoms whatsoever in the hospital. She did tell me that her s ymptoms are more consistent with acid reflux and food getting stuck in her throat. GI was consulted. Dr. Evans graciously saw the patient for me. He recommended addition of Protonix on a daily basis, which was done. The patient otherwise had no symptoms whatsoever and remained hemodynamically stabl e. Apparently, the patient has had an EGD done as an outpatient, which showed gastritis and Navarrete esophagus. I have no results available for that. The biopsy available in the EHR shows mild chronic inactive gastritis with focal intestinal metaplasia without any H. pylori, no dysplasia, no malignan cy. Esophagus had Navarrete mucosa. An echocardiogram was done as the patient has not had any cardiac workup done in the last few years. The results are pending at the time of discharge. Serial cardiac enzymes were trended and were nega tive. She had mild elevation of triglycerides to 279. Diet and lifestyle modification are advised. She did have a leukocytosis upon presentation, which is secondary to steroids. She has received chem otherapy as well as Neulasta. Cultures were obtained and will remain until the date of discharge. S he had no signs or symptoms to suggest any sort of infection. She will follow up with Oncology in e outpatient setting for possible left upper lobe mass. It is not pneumonia at this time, in my clin ical opinion. She will follow up with GI in the long-term with Dr. Evans, to discuss further screening needs for Ba rrett esophagus. At this time, she is stable for discharge. The patient was seen and examined prior to discharge. She was hemodynamically stable with a blood pr essure of 105/66, heart rate 89, saturating 96% on room air, afebrile, no acute distress. Chest was clear to auscultation bilaterally. Rate and rhythm is regular. LABORATORY EXAMINATION: Urine culture and blood culture negative to date. Final results pending at this time. She is instructed to follow with primary care physician for the results of the culture and echo.
== END 2017-09-20 13:43 | disposition home or self-care (01) ==
LOC: ERS 22:14 → 2SE 09-19 00:18
PROVIDERS: ADMIT Hospitalist; ATTEND Hospitalist
DX: K21.9 Gastro-esophageal reflux disease without esophagitis (principal); E11.9 Type 2 diabetes mellitus without complications; I10 Essential (primary) hypertension; E78.5 Hyperlipidemia, unspecified; M19.90 Unspecified osteoarthritis, unspecified site; I73.9 Peripheral vascular disease, unspecified; Z85.43 Personal history of malignant neoplasm of ovary; F41.9 Anxiety disorder, unspecified; Z88.5 Allergy status to narcotic agent; Z79.84 Long term (current) use of oral hypoglycemic drugs; Z79.899 Other long term (current) drug therapy
CPT/HCPCS: 71045; 71275; 80053; 80061; 82553; 82962 ×2; 84484 ×3; 85025; 85379; 87040; 87086; 93005; 93306; 94760; 96361 ×2; 96365; 96375; 99285; G0378 ×2; 36415; 36416; 81003; 81015; J0692; J1956

== ENCOUNTER 2017-10-08 10:43 | Day surgery (SDC) | payer MEDICARE, MEDICAID ==
[2017-10-08] MEDS ORDERED: Sodium Chloride 0.9% 20 ML ONE (10:55)
[2017-10-08] MEDS ORDERED: diphenhydrAMINE 50 MG/ML VIAL IVP SCH (11:15)
[2017-10-08] MEDS ORDERED: Pegfilgrastim 6 MG/0.6 ML Delivery Kit SQ SCH (11:15)
[2017-10-08] MEDS ORDERED: Famotidine/PF 20 mg/2ml Vial SLOW IVP SCH (11:15)
[2017-10-08] MEDS ORDERED: CARBOPLATIN IVPB SCH (11:15)
[2017-10-08] MEDS ORDERED: SODIUM CHLORIDE 0.9% IVPB SCH (11:15)
[2017-10-08] MEDS ORDERED: PALONOSETRON HCL 0.05 MG/ML 5 ML VIAL IVP SCH (11:15)
[2017-10-08] MEDS ORDERED: Dexamethasone 10 MG/ML VIAL SLOW IVP SCH (11:15)
[2017-10-08 11:50] VITALS: BP 107/56; TEMP 98.5
[2017-10-08] MEDS ORDERED: Dexamethasone 10 MG in Sodium Chloride 0.9% 50 ML IVPB SCH (12:00)
== END 2017-10-08 17:28 | disposition home or self-care (01) ==
LOC: ONC/OP 10:43
PROVIDERS: ATTEND Internal Medicine Hematology & Oncology
DX: Z51.11 Encounter for antineoplastic chemotherapy (principal); C56.1 Malignant neoplasm of right ovary; C78.89 Secondary malignant neoplasm of other digestive organs; E78.00 Pure hypercholesterolemia, unspecified; K21.9 Gastro-esophageal reflux disease without esophagitis; E11.51 Type 2 diabetes mellitus with diabetic peripheral angiopathy without gangrene; Z88.5 Allergy status to narcotic agent; F17.200 Nicotine dependence, unspecified, uncomplicated; Z79.899 Other long term (current) drug therapy
CPT/HCPCS: 36415; 80053; 82248; 83615; 84100; 84550; 86304; 96367; 96375; 96377; 96413; 96417; A4216; J1100; J1200; J1453; J1642; J2469; J2505; J7050; J9045; J9267; S0028

== ENCOUNTER 2017-10-25 12:45 | Emergency (ER) | payer MEDICARE, MEDICAID ==
[2017-10-25 16:13] LABS: Bilirubin Negative (Negative); Blood, Urine Negative (Negative); Clarity CLEAR (Clear); Glucose, Urine (Dipstick) Negative (Negative); Leukocyte Negative (Negative); Nitrite Negative (Negative); Protein, Urine (Dipstick) Negative (Neg-Trace); Specific Gravity, Urine 1.024 (1.002-1.036)
== END 2017-10-25 16:06 | disposition home or self-care (01) ==
LOC: ERS 12:45
DX: N95.2 Postmenopausal atrophic vaginitis (principal); E11.40 Type 2 diabetes mellitus with diabetic neuropathy, unspecified; I11.0 Hypertensive heart disease with heart failure; I50.9 Heart failure, unspecified; E78.5 Hyperlipidemia, unspecified; F17.210 Nicotine dependence, cigarettes, uncomplicated; Z79.891 Long term (current) use of opiate analgesic; Z79.899 Other long term (current) drug therapy
CPT/HCPCS: 51701; 81003; 87086; A4353

== ENCOUNTER 2017-11-13 09:05 | Outpatient (CLI) | payer MEDICARE, MEDICAID ==
--- NOTE | 2017-11-13 11:37 | CT ---
CT ABDOMEN AND PELVIS WITH IV CONTRAST: 11/13/2017 PROVIDED CLINICAL HISTORY: Ovarian cancer, status post chemotherapy. COMPARISON: 07/09/2017 FINDINGS: The visualized lung bases are free of significant opacity. There has been an interval decrease in the peritoneal-based soft tissue masses previously described. The contiguous cystic and solid masses present within the right lower quadrant/right hemipelvis demo nstrate an interval decrease in size. The cystic component previously measured approximately 4.7 cm in greatest transverse dimension with a mural nodule measuring about 3.6 cm in transverse dimension. Now the mural nodule measures about 1.4 cm. The primarily solid mass at the more inferior aspect of this process previously measured about 9.2 cm in greatest transverse dimension and now measures abou t 5.6 cm in greatest transverse dimension. The liver, spleen, pancreas, kidneys, and adrenal glands demonstrate an unchanged CT appearance. Bev nges of a prior cholecystectomy are seen. The osseous structures demonstrate no concerning osteoblastic or osteolytic lesions. The patient is status post hysterectomy. The vaginal cuff and the expected location of the vaginal vault demonstrat e an unremarkable CT appearance. The urinary bladder and rectum appear normal. Vascular calcification is noted, prominently involving the abdominal aorta and its branches. The osseous structures demonstrate no concerning osteoblastic or osteolytic lesions. Antral gastric wall thickening is redemonstrated, similar to prior. IMPRESSION: 1. Marked interval reduction in bulk of peritoneal soft tissue masses and decrease in solid componen ts of right lower quadrant/right hemipelvic cystic and solid mass. 2. Additional interval change from prior examination is not evident. POS: [facility]
[2017-11-13] MEDS ORDERED: Iopamidol 370 76% 100 ML VIAL ONE (14:50)
== END 2017-11-13 09:06 | disposition home or self-care (01) ==
LOC: CT 09:05
PROVIDERS: ATTEND Obstetrics & Gynecology Gynecologic Oncology
DX: C56.1 Malignant neoplasm of right ovary (principal)
CPT/HCPCS: 74177

== ENCOUNTER 2017-12-24 13:39 | Day surgery (SDC) | payer MEDICARE, MEDICAID ==
[2017-12-24] MEDS ORDERED: Sodium Chloride 0.9% 20 ML ONE (13:40)
[2017-12-24] MEDS ORDERED: Pegfilgrastim Onpro 6 MG/0.6 ML SQ SCH (14:00)
[2017-12-24] MEDS ORDERED: Dexamethasone 10 MG/ML VIAL SLOW IVP SCH (14:00)
[2017-12-24] MEDS ORDERED: SODIUM CHLORIDE 0.9% IVPB SCH (14:00)
[2017-12-24] MEDS ORDERED: PALONOSETRON HCL 0.05 MG/ML 5 ML VIAL IVP SCH (14:00)
[2017-12-24] MEDS ORDERED: Famotidine 20 MG TAB PO SCH (14:00)
[2017-12-24] MEDS ORDERED: diphenhydrAMINE 50 MG CAP PO SCH (14:00)
[2017-12-24] MEDS ORDERED: CARBOPLATIN IVPB SCH (14:00)
[2017-12-24 14:09] VITALS: BP 109/59; TEMP 96.9
== END 2017-12-24 19:00 | disposition home or self-care (01) ==
LOC: ONC/OP 13:39
PROVIDERS: ATTEND Internal Medicine Hematology & Oncology
DX: Z51.11 Encounter for antineoplastic chemotherapy (principal); C56.1 Malignant neoplasm of right ovary; C78.89 Secondary malignant neoplasm of other digestive organs; Z88.5 Allergy status to narcotic agent; Z88.8 Allergy status to other drugs, medicaments and biological substances
CPT/HCPCS: 80053; 82248; 83615; 84100; 84550; 86304; 96367; 96375; 96377; 96413; 96415; 96417; J1100; J1453; J1642; J2469; J2505; J7050; J9045; J9267

== ENCOUNTER 2018-01-14 08:10 | Outpatient (CLI) | payer MEDICARE, MEDICAID ==
--- NOTE | 2018-01-14 11:52 | MRI ---
MRI ABDOMEN WITH AND WITHOUT IV CONTRAST: Date: 01/14/18 HISTORY: Benign neoplasm of right adrenal gland. COMPARISON: 11/08/15. FINDINGS: Bilateral adrenal nodules are stable, measuring approximately 1.5 cm on the right and 2.5 cm on the l eft. These demonstrate signal dropout on the [id number] images and are consistent with lipid-rich a denomas. There are tiny cysts in the right kidney. The liver, pancreas, spleen, and left kidney appear normal. The patient is post cholecystectomy. No abnormal biliary ductal dilatation is seen. No free fluid or lymphadenopathy is noted in the abdomen. There is no evidence of aneurysmal dilatation of the abdomin al aorta. The bone marrow signal is normal. There is mild scoliosis of the lumbar spine. No abnormal areas of postcontrast enhancement is seen. IMPRESSION: 1. Stable bilateral adrenal adenomas. 2. Tiny right renal cysts. POS: C
== END 2018-01-14 08:11 | disposition home or self-care (01) ==
LOC: BICMRI 08:10
PROVIDERS: ATTEND Urology
DX: D35.01 Benign neoplasm of right adrenal gland (principal); D35.02 Benign neoplasm of left adrenal gland; N28.1 Cyst of kidney, acquired
CPT/HCPCS: 74183; 80053; 82248; 83615; 84100; 84550; 86304

== ENCOUNTER 2018-01-21 09:24 | Day surgery (SDC) | payer MEDICARE, MEDICAID ==
[2018-01-21] MEDS ORDERED: Sodium Chloride 0.9% 20 ML ONE (09:34)
[2018-01-21 10:00] LABS: #Eosinphils 0.1 thou/uL (0.0-0.7); #Lymphocytes 1.7 thou/uL (1.20-3.40); #Monocytes 0.3 thou/uL (0.11-0.59); #Neutrophils 1.9 thou/uL (1.40-6.50); %Basophils 0.5 % (0.0-1.0); %Eosinophils 3.4 % (0.0-10.0); %Lymphocytes 41.2 % (21.0-51.0); %Monocytes 8.4 % (0.0-10.0); %Neutrophils 46.4 % (42.0-75.0); Hemoglobin 11.9 g/dL (12.0-16.0); Mean Corpuscular HGB CONC 31.7 g/dL (32.0-36.0); Mean Corpuscular Hemoglobin 28.5 pg (27.0-31.0); Mean Corpuscular Volume 89.9 fL (78.0-98.0); Mean Platelet Volume 8.5 fL (7.4-10.4); Platelet Count 226 thou/uL (130-400); RBC Distribution Width 17.8 % (11.5-14.5); Red Blood Cell (RBC) Count 4.16 mill/uL (4.20-5.40); White Blood Cell (WBC) Count 4.1 thou/uL (4.8-10.8)
[2018-01-21 10:18] LABS: ALT (SGPT) Less than 7 U/L (8-55); AST (SGOT) 9 U/L (5-34); Albumin 3.7 g/dL (3.4-4.8); Alkaline Phosphatase 125 U/L (40-150); Anion Gap 10 mmol/L (10-20); BUN (Urea Nitrogen) 16 mg/dL (9.8-20.1); Bilirubin, Total 0.2 mg/dL (0.2-1.2); Calc. Creatinine Clearance 0 mL/min (70-130); Calcium 9.6 mg/dL (7.8-10.44); Carbon Dioxide 25 mmol/L (23-31); Chloride 108 mmol/L (98-107); Estimated GFR-MDRD 86; Globulin 3.1 g/dL (2.4-3.5); Glucose 146 mg/dL (83-110); LDH 136 U/L (125-220); Potassium 4.3 mmol/L (3.5-5.1); Protein, Total 6.8 g/dL (6.0-8.3); Sodium 139 mmol/L (136-145); Uric Acid 4.6 mg/dL (2.6-6.0)
[2018-01-21 10:27] VITALS: BP 154/70; TEMP 97.8
[2018-01-21] MEDS ORDERED: Pegfilgrastim Onpro 6 MG/0.6 ML SQ SCH (10:45)
[2018-01-21] MEDS ORDERED: Dexamethasone 10 MG/ML VIAL SLOW IVP SCH (10:45)
[2018-01-21] MEDS ORDERED: diphenhydrAMINE 50 MG CAP PO SCH (10:45)
[2018-01-21] MEDS ORDERED: Famotidine 20 MG TAB PO SCH (10:45)
[2018-01-21] MEDS ORDERED: PALONOSETRON HCL 0.05 MG/ML 5 ML VIAL IVP SCH (10:45)
[2018-01-21] MEDS ORDERED: CARBOPLATIN IVPB SCH (11:00)
[2018-01-21] MEDS ORDERED: SODIUM CHLORIDE 0.9% IVPB SCH (11:00)
== END 2018-01-21 16:19 | disposition home or self-care (01) ==
LOC: ONC/OP 09:24
PROVIDERS: ATTEND Internal Medicine Hematology & Oncology
DX: Z51.11 Encounter for antineoplastic chemotherapy (principal); C56.1 Malignant neoplasm of right ovary; C78.89 Secondary malignant neoplasm of other digestive organs; E11.9 Type 2 diabetes mellitus without complications; E78.00 Pure hypercholesterolemia, unspecified; I73.9 Peripheral vascular disease, unspecified; K21.9 Gastro-esophageal reflux disease without esophagitis; F17.200 Nicotine dependence, unspecified, uncomplicated; Z88.5 Allergy status to narcotic agent; Z88.8 Allergy status to other drugs, medicaments and biological substances; Z79.84 Long term (current) use of oral hypoglycemic drugs; Z79.899 Other long term (current) drug therapy
CPT/HCPCS: 80053; 83615; 84550; 85025; 96367; 96375; 96377; 96413; 96415; 96417; J1100; J1453; J1642; J2469; J2505; J7050; J9045; J9267

== ENCOUNTER 2018-02-11 11:18 | Day surgery (SDC) | payer MEDICARE, MEDICAID ==
[2018-02-11] MEDS ORDERED: Sodium Chloride 0.9% 40 ML ONE (11:39)
[2018-02-11] MEDS ORDERED: Famotidine/PF 20 MG in Sodium Chloride 0.9% 50 ML IVPB SCH (12:00)
[2018-02-11] MEDS ORDERED: Pegfilgrastim Onpro 6 MG/0.6 ML SQ SCH (12:00)
[2018-02-11] MEDS ORDERED: Dexamethasone 10 MG in Sodium Chloride 0.9% 50 ML IVPB SCH (12:00)
[2018-02-11] MEDS ORDERED: Palonosetron HCl 0.25 MG in Sodium Chloride 0.9% 50 ML IVPB SCH (12:00)
[2018-02-11] MEDS ORDERED: SODIUM CHLORIDE 0.9% IVPB SCH (12:15)
[2018-02-11] MEDS ORDERED: CARBOPLATIN IVPB SCH (12:15)
[2018-02-11] MEDS ORDERED: diphenhydrAMINE 50 MG CAP PO SCH (12:15)
[2018-02-11 14:30] VITALS: BP 166/72; TEMP 98.4
== END 2018-02-11 17:57 | disposition home or self-care (01) ==
LOC: ONC/OP 11:18
PROVIDERS: ATTEND Internal Medicine Hematology & Oncology
DX: Z51.11 Encounter for antineoplastic chemotherapy (principal); C56.1 Malignant neoplasm of right ovary; C78.89 Secondary malignant neoplasm of other digestive organs; E11.9 Type 2 diabetes mellitus without complications; E78.00 Pure hypercholesterolemia, unspecified; I73.9 Peripheral vascular disease, unspecified; K21.9 Gastro-esophageal reflux disease without esophagitis; F17.200 Nicotine dependence, unspecified, uncomplicated; M19.90 Unspecified osteoarthritis, unspecified site; Z88.2 Allergy status to sulfonamides; Z88.5 Allergy status to narcotic agent; Z88.8 Allergy status to other drugs, medicaments and biological substances; Z79.84 Long term (current) use of oral hypoglycemic drugs; Z79.899 Other long term (current) drug therapy
CPT/HCPCS: 80053; 82248; 83615; 84100; 84550; 86304; 96367; 96375; 96377; 96413; 96415; 96417; J1100; J1453; J1642; J2469; J2505; J7050; J9045; J9267; S0028

== ENCOUNTER 2019-01-26 08:51 | Outpatient (CLI) | payer MEDICARE, MEDICAID ==
--- NOTE | 2019-01-26 10:10 | MRI ---
EXAM: MRI of the abdomen without and with contrast COMPARISON: 01/14/2018 HISTORY: Benign neoplasm of the adrenal gland TECHNIQUE: Multiplanar multi sequence MR images were taken of the abdomen without and with IV contras t. FINDINGS: Liver: No focal liver lesions or intrahepatic ductal dilatation. Normal signal without dropout on out of phase images. No abnormal enhancement. Gallbladder: Absent Common bile duct: Normal caliber without filling defects Adrenal glands: Stable 2.1 cm right adrenal mass. Stable 2.4 cm left adrenal mass. Both of these mass es lose signal on out of phase images consistent with fat-containing adrenal adenomas.. Kidneys: No hydronephrosis. Tiny subcentimeter nonenhancing foci of high T2 signal in the kidneys con sistent with small cysts. No abnormal areas of enhancement. Spleen: Unremarkable. Pancreas: Unremarkable. No abnormal enhancement. Retroperitoneum: No enlarged lymph nodes Bones: No marrow signal abnormality. IMPRESSION: 1. Stable bilateral adrenal adenomas 2. Tiny bilateral renal cysts.
[2019-01-26] MEDS ORDERED: Magnevist 469MG/ML 20 ML VIAL ONE (11:06)
== END 2019-01-26 08:52 | disposition home or self-care (01) ==
LOC: MRI 08:51
PROVIDERS: ATTEND Urology
DX: D35.01 Benign neoplasm of right adrenal gland (principal); D35.02 Benign neoplasm of left adrenal gland; N28.1 Cyst of kidney, acquired
CPT/HCPCS: 74183; 82565; A9579

== ENCOUNTER 2019-05-06 02:33 | Inpatient (IN) | payer MEDICARE, MEDICAID ==
[2019-05-06] MEDS ORDERED: Ondansetron PF 4 MG/2 ML Vial ONE ×2 (02:49→05:11)
[2019-05-06 03:18] LABS: #Lymphocytes 1.7 thou/uL (1.20-3.40); #Monocytes 0.2 thou/uL (0.11-0.59); %Basophils 0.1 % (0.0-1.0); %Eosinophils 0.3 % (0.0-10.0); %Lymphocytes 24.8 % (21.0-51.0); %Monocytes 3.4 % (0.0-10.0); %Neutrophils 71.5 % (42.0-75.0); Hemoglobin 13.9 g/dL (12.0-16.0); Mean Corpuscular HGB CONC 31.2 g/dL (32.0-36.0); Mean Corpuscular Hemoglobin 28.8 pg (27.0-31.0); Mean Corpuscular Volume 92.4 fL (78.0-98.0); Mean Platelet Volume 8.3 fL (7.4-10.4); Platelet Count 199 thou/uL (130-400); RBC Distribution Width 14.6 % (11.5-14.5); Red Blood Cell (RBC) Count 4.81 mill/uL (4.20-5.40)
[2019-05-06 03:40] LABS: ALT (SGPT) Less than 7 U/L (8-55); AST (SGOT) 13 U/L (5-34); Albumin 4.5 g/dL (3.4-4.8); Alkaline Phosphatase 160 U/L (40-110); Anion Gap 17 mmol/L (10-20); BUN (Urea Nitrogen) 14 mg/dL (9.8-20.1); Bilirubin, Total 0.3 mg/dL (0.2-1.2); Calc. Creatinine Clearance 0 mL/min (70-130); Carbon Dioxide 20 mmol/L (23-31); Chloride 104 mmol/L (98-107); Estimated GFR-MDRD 69; Globulin 4.4 g/dL (2.4-3.5); Glucose 235 mg/dL (83-110); Lipase 57 U/L (8-78); Potassium 3.7 mmol/L (3.5-5.1); Protein, Total 8.9 g/dL (6.0-8.3); Sodium 137 mmol/L (136-145)
[2019-05-06 03:45] LABS: Bilirubin Negative (Negative); Blood, Urine Negative (Negative); Clarity Clear (Clear); Glucose, Urine (Dipstick) >=1000 mg/dL (Negative); Leukocyte Negative Leu/uL (Negative); Nitrite Negative (Negative); Protein, Urine (Dipstick) 20 mg/dL (Neg-Trace); Urobilinogen Normal mg/dL (Less than 2)
[2019-05-06] MEDS ORDERED: Sodium Chloride 0.9% 1,000 ML IV SCH (05:20)
[2019-05-06] MEDS ORDERED: Ondansetron ODT 4 MG TAB SL PRN (05:20)
[2019-05-06] MEDS ORDERED: Ondansetron PF 4 MG/2 ML Vial IVP PRN (05:20)
[2019-05-06] MEDS ORDERED: Morphine 4 MG/ML VIAL ONE (06:04)
[2019-05-06 07:01] VITALS: BMI 22.6
[2019-05-06] MEDS ORDERED: Labetalol HCl 100 MG/20 ML VIAL SLOW IVP PRN (07:28)
[2019-05-06] MEDS ORDERED: Lisinopril 20 MG TAB PO SCH (07:30)
[2019-05-06] MEDS ORDERED: HumaLOG 300 UNITS/3 ML VIAL SC PRN ×2 (07:34→18:05)
[2019-05-06] MEDS ORDERED: HumaLOG 300 UNITS/3 ML VIAL SC SCH (07:45)
[2019-05-06] MEDS: Sodium Chloride 0.9% 1,000 ML IV SCH ×2 (08:40→18:47)
[2019-05-06] MEDS: Lisinopril 20 MG TAB PO SCH (08:41)
[2019-05-06] MEDS: Enoxaparin Sodium 30 MG/0.3 ML SYRINGE SC SCH (08:41)
[2019-05-06] MEDS ORDERED: HYDROcodone/Acetaminophen 5/325 mg Tablet PO PRN (08:50)
[2019-05-06] MEDS ORDERED: Ondansetron PF 4 MG/2 ML Vial IVP SCH (09:00)
--- NOTE | 2019-05-06 10:37 | CT ---
PRELIMINARY REPORT/DIRECT RADIOLOGY/EMERGENCY AFTER HOURS PROCEDURE EXAM: CT Abdomen and Pelvis with Intravenous Contrast CLINICAL HISTORY: F78 presents to ED via EMS c/o N/V/D. Pt states she hasn't been feeling well all da y and began having multiple episodes of N/V/D tonight. Pt also reports abdominal cramping. Denies fev er, recent antibiotic use, recent travel, or urinary symptoms. Reports previous abdominal sx and hx o f ovarian cancer. TECHNIQUE: Axial computed tomography images of the abdomen and pelvis with intravenous contrast. CONTRAST: With; ISOVUE 370,100mL COMPARISON: None provided. FINDINGS: LUNG BASES: No basilar airspace consolidation or pleural effusion. LIVER: Unremarkable. GALLBLADDER AND BILE DUCTS: The patient has had a cholecystectomy. PANCREAS: Unremarkable. SPLEEN: Unremarkable. ADRENAL GLANDS: Bilateral adrenal gland slightly enlarged. KIDNEYS, URETERS, AND BLADDER: Unremarkable. No hydronephrosis or nephrolithiasis. No ureteral or yony dder calculi. STOMACH AND BOWEL: There are multiple fluid-filled small bowel loops in the abdomen with fluid seen i n the colon, gastroenteritis is a consideration. APPENDIX: No CT evidence for appendicitis. PERITONEUM: No free fluid. No free air. LYMPH NODES: No lymphadenopathy. REPRODUCTIVE: Unremarkable as visualized. VASCULATURE: No aortic aneurysm. BONES: No fracture or suspicious osseous abnormality. ABDOMINAL WALL AND SOFT TISSUES: Unremarkable. IMPRESSION: There are multiple fluid-filled small bowel loops in the abdomen with fluid seen in the c olon, gastroenteritis is a consideration. ELECTRONICALLY SIGNED BY: Lawrence Crocker MD May 06, 2019 4:16:17 AM CDT FINAL REPORT ABDOMEN AND PELVIC CT SCAN WITH IV CONTRAST: EMERGENT AFTER HOURS TIME: 3:57 AM. DATE: 04/26/2019. COMPARISON: 01/26/2019, 11/13/2017. FINDINGS: This exam was performed with IV contrast only. No oral contrast. There are some heterogeneous low-attenuation foci within the liver as well as some marginal nodularit y. This is nonspecific. The possibility of developing metastatic disease or possibly even cirrhosis or other liver disease is a possibility. Some of the more exophytic or peripheral nodules could con ceivably represent omental or mesenteric implant disease rather than primary liver disease. There is a moderate-sized hiatal hernia. There appear to be several lymph nodes which are new from the prior study. One of these is in the gastrohepatic ligament region measuring 0.8 cm. There is a second fo cus in the peripancreatic region measuring approximately 0.9 cm in size as well as a nodular foci in the left upper quadrant up to 1.2 cm in size in the perisplenic region right-sided retroperitoneum ad jacent to the psoas muscle measuring approximately 1 cm. There are also several anterior mesenteric nodular foci adjacent to the anterior abdominal wall probably representing omental metastasis. There may be some additional omental nodules or lymph nodes which are poorly seen on this CT without oral contrast. A 1.8 x 3.7 cm diameter poorly defined low-attenuation focus in the lateral right upper pelvis probab ly representing residual changes from the large 7 cm diameter cystic mass in the same region. There is also a 2.5 cm diameter poorly defined mass in the right lateral inferior pelvis where the previous ly noted large 6 cm diameter neoplastic mass was noted. IMPRESSION: Heterogeneous liver attenuation as well as some nodular changes along the periphery of the liver rais ing concern for the possibility of liver metastasis as well as numerous other nodular small foci with in the abdomen and pelvis mesentery concerning for mesenteric or peritoneal metastasis. Some residua l findings in the right inferior retroperitoneum and lateral pelvis as well as the right adnexal jose on representing residual from the previously tumor masses seen on 11/13/2017 study. A followup abdomen and pelvic MRI with and without IV contrast is recommended for further assessment. Findings were discussed with Dr. Johnson by phone at 9:00 a.m. CODE MURPHY POS: NING
--- NOTE | 2019-05-06 11:00 | MRI ---
MR the pelvis with and without contrast INDICATION: 78-year-old female with history of metastatic cancer COMPARISON: CT abdomen and pelvis with contrast dated 04/26/[address] abdomen and pelvis dated 2017 Contrast: 10 cc of MultiHance FINDINGS: There is a residual soft tissue mass seen within the right lower quadrant of the abdomen me asuring 2.8 x 1.5 cm in size consistent with regional metastatic disease. This is best seen on image 20 series 15. There is a residual soft tissue mass seen within the right posterior lateral aspe ct of the cul-de-sac of Rg measuring 2.8 x 2.1 cm on image 13 of series 15 consistent regional metastatic disease. There is moderate to prominent distention of the bladder. Uterus and adnexa are n ot visualized. No pathologically enlarged lymph nodes are evident. There is mild free fluid within the pelvis. No bone marrow signal abnormality is grossly evident. IMPRESSION: 1. Residual soft tissue mass is seen involving the peritoneal lining of the right lower quadrant of t he abdomen as well as the right posterior lateral aspect of the cul-de-sac consistent with peritoneal carcinomatosis. 2. Mild free fluid within the pelvis. 3. Moderate to prominent distention of the bladder.
--- NOTE | 2019-05-06 11:00 | MRI ---
EXAM: MRI of the abdomen without and with contrast COMPARISON: 01/26/2019; CT abdomen/pelvis 05/06/2019 HISTORY: Metastatic ovarian cancer TECHNIQUE: Multiplanar multi sequence MR images were taken of the abdomen without and with IV contras t. [An MRCP was performed.] FINDINGS: Liver: Along the periphery of the liver, predominantly along the capsule, there are scattered well-ci rcumscribed foci of high T2 signal measuring up to 3.5 cm in size which may represent implants along the capsule of the liver. Some of these smaller lesions demonstrate enhancement but the larger lesion does not demonstrate enhancement. No focal parenchymal liver lesions or intrahepatic ductal dilatation. Normal signal without dropout on out of phase images. No abnormal enhancement. Gallbladder: No filling defects or gallbladder wall thickening. Common bile duct: Normal caliber without filling defects Adrenal glands: There is stable bilateral adrenal masses measuring up to 2.4 cm in size on the left.. Kidneys: Tiny subcentimeter cysts are seen in both kidneys. No hydronephrosis or focal solid renal le sions. No abnormal areas of enhancement. Spleen: Unremarkable. A small nodule in the splenic hilum likely represents a splenule. Pancreas: Unremarkable. No abnormal enhancement. Retroperitoneum: No enlarged lymph nodes Bones: No marrow signal abnormality. IMPRESSION: 1. 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 2. Stable bilateral adrenal masses 3. Stable tiny renal cysts
[2019-05-06] MEDS: hydrALAZINE 20 MG/ML VIAL SLOW IVP SCH ×2 (11:28→13:32)
--- NOTE | 2019-05-06 12:21 | EKG ---
Test Reason : Blood Pressure : / mmHG Vent. Rate : 082 BPM Atrial Rate : 082 BPM P-R Int : 160 ms QRS Dur : 078 ms QT Int : 420 ms P-R-T Axes : 068 022 085 degrees QTc Int : 490 ms Normal sinus rhythm Possible Left atrial enlargement Left ventricular hypertrophy Nonspecific ST and T wave abnormality Prolonged QT Abnormal ECG When compared with ECG of 23-OCT-2017 18:45, No significant change was found Confirmed by ARUN HOWARD, . S. ([id number]) on 05/06/2019 12:21:47 PM Referred By: CALEB Confirmed By:DR. Ken DIAS MD
[2019-05-06] MEDS ORDERED: Iopamidol 370 76% 100 ML VIAL ONE (13:49)
[2019-05-06] MEDS ORDERED: Fluticasone Propionate Nasal Spray 16 gm Bottle NASAL PRN (16:01)
--- NOTE | 2019-05-06 16:06 | PDOC.HHP ---
Hospitalist HPI - History of Present Illness nausea, vomiting, and diarrhea History of Present Illness: 78yo F w/ MHx of stage III ovarian cancer s/p chemotherapy, HTN, PVD, GERD, benign adrenal neoplasms presents for nausea, vomiting, and diarrhea for 1 day. She has had abdominal pain since february on and off which was worked up as outaptient. yetserday, she was feeling unwell most of yesterday and then started having abdominal pain, diffuse but mostly epigastric and RUQ, followed by nausea and multiple episodes of moderate volume vomiting and multiple small volume liquidy bowel movements. All symptoms started about 3-4 hours after having dinner. Pain was 10/10, constant, pressure and stabbing, not affected by position or food intake. on encounter, laying comfortably in bed and complains of diffuse abdominal pain that was not relieved by pain medication received in the ED. actively vomiting during encounter, nonbloody nonbillous. Has no other complaints. Denies fever, chills, dyspnea, chest pain, pleuritic pain, worsening cough, sputum production , melena, hematochezia, dysuria, polyuria, polydipsia, flank pain, trauma, recent sick contacts. ED Course: in the ED received morphine, zofran. Ct scan was done and showed eveidnece of gastroenteritis. She was admitted to the floor for further workup adn management. Hospitalist ROS - Review of Systems Constitutional: denies: fever, chills, sweats, weakness, malaise, other Respiratory: denies: cough, dry, shortness of breath, hemoptysis, SOB with excertion, pleuritic pain, sputum, wheezing Cardiovascular: denies: chest pain, palpitations, orthopnea, paroxysmal noc. dyspnea, edema, light headedness Gastrointestinal: reports: nausea, vomiting, abdominal pain, diarrhea. denies: constipation, melena, hematochezia Genitourinary: denies: dysuria, frequency, incontinence, hematuria, retention Musculoskeletal: denies: neck pain, shoulder pain, arm pain, back pain, hand pain, leg pain, foot pain, other Neurological: denies: weakness, numbness, incoordination, change in speech, confusion All other systems reviewed; all pertinent +/- noted in HPI/Subj - Medication Medications: Active Medications Generic Name Dose Route Start Last Admin Trade Name Freq PRN Reason Stop Dose Admin Enoxaparin Sodium 30 mg 05/06/19 09:00 05/06/19 08:41 Lovenox SC 30 mg 0900 JOSE Administration Hydralazine HCl 10 mg 05/06/19 09:00 05/06/19 13:32 Apresoline SLOW IVP 10 mg Q4H JOSE Administration Sodium Chloride 1,000 mls @ 100 mls/hr 05/06/19 08:30 05/06/19 08:40 Normal Saline 0.9% IV 1,000 mls .Q10H JOSE Administration Lisinopril 20 mg 05/06/19 09:00 05/06/19 08:41 Zestril PO 20 mg DAILY JOSE Administration Pantoprazole Sodium 40 mg 05/06/19 09:00 05/06/19 08:41 Protonix PO 40 mg DAILY JOSE Administration Sodium Chloride 10 ml 05/06/19 09:00 05/06/19 08:28 Flush - Normal Saline IVF 10 ml Q12HR JOSE Administration Hospitalist History - Past Medical History Source: patient (poor historian), old records Cardiac: reports: HTN, Hyperlipidemia Gastrointestinal: reports: GERD Psych: reports: Anxiety, Depression Endocrine: reports: Diabetes Other Medical History: stage III ovarian cancer s/p chemotherapy in 2018 - Past Surgical History Other Surgical History: Cholecystectomy, hysterectomy, and tonsillectomy - Family History Family History: reports: diabetes mellitus, hypertension - Social History Smoking Status: Former smoker Tobacco Type: cigarettes Alcohol: reports: None Drugs: reports: none Living Situation: With Family Activity level: independent ambulation - Exam General Appearance: NAD, awake alert Eye: anicteric sclera Neck: no JVD Heart: RRR, no murmur, no gallops, no rubs Respiratory: CTAB, no wheezes, no rales, no ronchi, no tachypnea Gastrointestinal: soft, non-distended Gastrointestinal - other findings: attenuated bowel sounds; tenderness mostly RUQ and epigastric Extremities: no edema Neurological: cranial nerve grossly intact, no weakness, no focal deficits, no new deficit Psychiatric: normal affect, normal behavior, A&O x 3 Hospitalist Results - Labs Result Diagrams: 05/06/19 03:03 05/06/19 03:03 Lab results: WBC 7.0 thou/uL (4.8-10.8) 05/06/19 03:03 Hgb 13.9 g/dL (12.0-16.0) 05/06/19 03:03 Hct 44.4 % (36.0-47.0) 05/06/19 03:03 MCV 92.4 fL (78.0-98.0) 05/06/19 03:03 Plt Count 199 thou/uL (130-400) 05/06/19 03:03 Neutrophils % 71.5 % (42.0-75.0) 05/06/19 03:03 Sodium 137 mmol/L (136-145) 05/06/19 03:03 Potassium 3.7 mmol/L (3.5-5.1) 05/06/19 03:03 Chloride 104 mmol/L (98-107) 05/06/19 03:03 Carbon Dioxide 20 mmol/L (23-31) L 05/06/19 03:03 BUN 14 mg/dL (9.8-20.1) 05/06/19 03:03 Creatinine 0.94 mg/dL (0.6-1.1) 05/06/19 03:03 Glucose 235 mg/dL (83-110) H 05/06/19 03:03 Calcium 10.0 mg/dL (7.8-10.44) 05/06/19 03:03 Total Bilirubin 0.3 mg/dL (0.2-1.2) 05/06/19 03:03 AST 13 U/L (5-34) 05/06/19 03:03 ALT Less than 7 U/L (8-55) L 05/06/19 03:03 Alkaline Phosphatase 160 U/L (40-110) H 05/06/19 03:03 Serum Total Protein 8.9 g/dL (6.0-8.3) H 05/06/19 03:03 Albumin 4.5 g/dL (3.4-4.8) 05/06/19 03:03 Lipase 57 U/L (8-78) 05/06/19 03:03 Urine Ketones Trace mg/dL (Negative) A 05/06/19 03:21 Urine Blood Negative (Negative) 05/06/19 03:21 Urine Nitrite Negative (Negative) 05/06/19 03:21 Ur Leukocyte Esterase Negative Dina/uL (Negative) 05/06/19 03:21 - EKG Interpretation EKG: ekg showing sinus rhythm with no signs of ischemia - Radiology Interpretation CT scan - abdomen Status: report reviewed by me (findings consistent wuith gastroenteritis initially; received phone call at 9:00 stating that there si evidence of peritoneal metasteses and masses at locations of previous masses.) Hospitalist H&P A/P - Plan Plan: #peritoneal carcinomatosis #gastroenteritis -qSOFA 0/3; WBC normal and no signs of systemic infection -chronic abdominal pain likley due to carcinomatosis; acute on chronic may be a result of gastroenteritis -CT abdomen showing hepatic involvement as well as masses present in locations noted in older scans (per verbal report); no signs of obstruction -IVF -Tylenol PRN pain; if insufficient, morphine 4mg IVP q4h PRN pain; zofran -MRI abdomen with and without contrast -consulted palliative and oncology #distended bladder -may be due to external obstruction or chronic opioid use (tramadol) -no renal dysfucntion -straight cath -if > 400, postvoid residual and straight cath if > 400cc; if doesn uriante within 6h, bladder scan #HTN -currently hypertensive; likely due to vomiting not allowing her to take home medications -will restart home medications as well as IV antiHTN #T2DM -on oral medications at home -sliding scale; check glucose q4h as long as NPO Disposition/PPx full code per patient DVT PPx: lovenox GI PPx: pantoprazole for GERD
[2019-05-06] MEDS ORDERED: Amlodipine 10 MG TAB PO SCH (16:15)
[2019-05-06] MEDS ORDERED: Labetalol HCl 100 MG/20 ML VIAL SLOW IVP SCH (17:30)
[2019-05-06] MEDS: Morphine 4 MG/ML VIAL SLOW IVP PRN (18:38)
[2019-05-06] MEDS: Ondansetron PF 4 MG/2 ML Vial IVP PRN (18:40)
[2019-05-06] MEDS ORDERED: traZODone HCl 50 MG TAB PO SCH (21:00)
[2019-05-06] MEDS ORDERED: Simvastatin 5 MG TAB PO SCH (21:00)
[2019-05-06] MEDS: Acetaminophen 325 MG TAB PO SCH (21:28)
[2019-05-06] MEDS: Gabapentin 300 MG CAP PO SCH (21:28)
[2019-05-06] MEDS: Labetalol HCl 100 MG/20 ML VIAL SLOW IVP SCH (21:41)
[2019-05-07] MEDS: Labetalol HCl 100 MG/20 ML VIAL SLOW IVP SCH ×4 (02:07→13:09)
[2019-05-07] MEDS: hydrALAZINE 20 MG/ML VIAL SLOW IVP SCH (02:10)
[2019-05-07] MEDS: Morphine 4 MG/ML VIAL SLOW IVP PRN (05:07)
[2019-05-07] MEDS: Ondansetron PF 4 MG/2 ML Vial IVP PRN (05:08)
[2019-05-07 06:03] LABS: Anion Gap 18 mmol/L (10-20); BUN (Urea Nitrogen) 19 mg/dL (9.8-20.1); Calc. Creatinine Clearance 42 mL/min (70-130); Calcium 9.5 mg/dL (7.8-10.44); Carbon Dioxide 14 mmol/L (23-31); Chloride 112 mmol/L (98-107); Estimated GFR-MDRD 68; Glucose 151 mg/dL (83-110); Magnesium 1.7 mg/dL (1.6-2.6); Potassium 4.1 mmol/L (3.5-5.1); Sodium 140 mmol/L (136-145)
[2019-05-07 07:22] VITALS: TEMP 98.6
[2019-05-07] MEDS: Sodium Chloride 0.9% 1,000 ML IV SCH (08:22)
[2019-05-07] MEDS: Acetaminophen 325 MG TAB PO SCH (08:22)
[2019-05-07] MEDS: Gabapentin 300 MG CAP PO SCH (08:22)
[2019-05-07] MEDS: Lisinopril 20 MG TAB PO SCH (08:23)
[2019-05-07] MEDS: Enoxaparin Sodium 30 MG/0.3 ML SYRINGE SC SCH (08:24)
[2019-05-07] MEDS ORDERED: Pantoprazole 40 MG VIAL IVP SCH ×2 (09:00→21:00)
[2019-05-07] MEDS ORDERED: Amlodipine 10 MG TAB PO SCH (09:00)
[2019-05-07] MEDS ORDERED: Dextrose 50% Abboject 50 ML SYRINGE ONE ×2 (11:44→14:42)
--- NOTE | 2019-05-07 12:07 | PDOC.PALCO ---
Palliative Care Consult - Consult Details Requesting Physician: Dr Johnson Reason for Consult: goals of care, family support Family Members Present: Daughter Michelle - Pertinent HPI 78 year old female who was diagnosed and treated for ovarian cancer 11/2017. She had been in remission and was following up at the cancer clinic. She has an onset suddenly of nausea vomiting and diarrhea, she presented to the emergency room for evaluation as there were no relieving factors at home. Evaluation in the emergency room identified suspected metastatic disease. She did not follow up with the cancer clinic secondary to the recent loss of her son in February 2019. - Pertinent PMH Stage III Ovarian cancer, Diabetes, HTN, HDL, PVD, CKD - Social History Smoking Status: Current every day smoker Smoking: cigarettes Alcohol Use: none Drug Use History: none Living Situation: other (, her daughter lives with her) - Medications MAR Reviewed: Yes - Allergies Allergies/Adverse Reactions: Allergies Allergy/AdvReac Type Severity Reaction Status Date / Time codeine Allergy Intermediate STOMACH Verified 09/19/17 05:49 PAIN sulfamethoxazole Allergy Verified 09/19/17 05:49 [From Bactrim] trimethoprim [From Bactrim] Allergy Verified 09/19/17 05:49 - Subjective Awake, mildly confused, restless. Continues to complain of abdominal discomfort. Daughter at bedside, patient waiting for a bath, states "that will make me feel better". Difficult to fully perform ROS secondary to restless and slight confusion - ROS Constitutional: alert, weakness Gastrointestinal: abdominal pain, diarrhea, nausea, vomiting Psychological: restless - Objective Vital Signs: Vital Signs - Most Recent Temp Pulse Resp BP Pulse Ox 98.6 F 107 H 18 121/69 97 05/07/19 07:19 05/07/19 08:23 05/07/19 07:19 05/07/19 08:23 05/07/19 07:19 Palliative Performance Scale: 40 - Physical Exam Constitutional: confusion, ill appearing HEENT: EOMI, moist MMs, sclera anicteric Respiratory: unlabored breathing Cardiovascular: RRR Gastrointestinal: continent Deviation from normal: mild tenderness with gentle palpation Genitourinary: shepard catheter Musculoskeletal: no cyanosis, no clubbing Neurology: moves all 4 limbs Skin: no lesions, no rash Psychiatric: normal affect Deviation from normal: Oriented to self, place, mild confusion - Problem List (1) Palliative care encounter Code(s): Z51.5 - ENCOUNTER FOR PALLIATIVE CARE Current Visit: Yes Status: Acute (2) Peritoneal carcinomatosis Code(s): C78.6 - SECONDARY MALIGNANT NEOPLASM OF RETROPERITON AND PERITONEUM; C80.1 - MALIGNANT (PRIMARY) NEOPLASM, UNSPECIFIED Current Visit: Yes Status : Acute (3) Nausea & vomiting Code(s): R11.2 - NAUSEA WITH VOMITING, UNSPECIFIED Current Visit: Yes Status : Acute (4) Abdominal pain Code(s): R10.9 - UNSPECIFIED ABDOMINAL PAIN Current Visit: Yes Status: Acute - Plan/Recommendations Plan: Introduced Palliative Care to patient and daughter. Daughter states there are 3 living children (One brother of a ID in Feb 2019) daughters are Michelle Kessler, Maureen Parveen, Patricia Kessler. Michelle believes her daughter Candida Vu is MPOA for patient [phone] (she will attempt to locate paperwork) Patient and daughter confirmed for now patient to have full resuscitative measures if indicated. Revisited findings of diagnostics with patient and daughter, they are waiting for consult from oncology. Goal of care for now is aggressive measures. Daughter expressed inability to cover expenses of food. Spiritual care consult for spiritual and emotional support as well are resource for meal pass. Palliative care will continue to follow to support and reassess Goal of Care as needed as well as provide emotional support and therapeutic listening. [75] minutes spent on this encounter with >50% of the time in counseling and coordination of care. Thank you for this very appropriate consult.
[2019-05-07] MEDS ORDERED: Dextrose 5% in Water 1,000 ML IV PRN (12:12)
[2019-05-07] MEDS ORDERED: Dextrose 5 % And 0.9 % NaCl 1,000 ML IV SCH (12:15)
[2019-05-07] MEDS: Dextrose 50% Abboject 50 ML SYRINGE SLOW IVP PRN ×2 (13:07→14:52)
[2019-05-07 13:10] VITALS: BP 124/70
--- NOTE | 2019-05-07 14:51 | PDOC.EVN ---
Event Note - Event Note Event Note: Per nurse, had large possibly bloody bowel movement. Will send FOBT, H&H, start PPI considering history of UGI bleed, start empiric ABx for bacterial gastroenteritis, follow vitals closely.
--- NOTE | 2019-05-07 15:05 | PDOC.HOSPP ---
- Subjective Encounter Date: 05/07/19 Encounter Time: 11:10 Subjective: no overnight events. This morning, pain improved and had no additional bowel movement or nausea/vomiting. - Objective Vital Signs & Weight: Vital Signs (12 hours) Temp Pulse Resp BP BP Pulse Ox 05/07/19 13:09 107 H 124/70 05/07/19 08:23 107 H 121/69 05/07/19 08:22 107 H 121/69 05/07/19 07:19 98.6 F 107 H 18 121/69 97 05/07/19 06:11 109 H 05/07/19 04:51 98.2 F 109 H 18 153/69 H 100 Weight Admit Weight 123 lb 8 oz Weight 123 lb 8 oz I&O: 05/06/19 05/07/19 05/08/19 06:59 06:59 06:59 Output Total 350 Balance -350 Result Diagrams: 05/07/19 15:39 05/07/19 16:18 Additional Labs: Accuchecks 05/07/19 05/07/19 05/06/19 12:15 04:53 20:26 POC Glucose 235 H 178 H 209 H Hospitalist ROS - Review of Systems Constitutional: denies: fever, chills, sweats Respiratory: denies: cough, dry, shortness of breath, hemoptysis Cardiovascular: denies: chest pain, palpitations, orthopnea, paroxysmal noc. dyspnea Gastrointestinal: reports: abdominal pain. denies: nausea, vomiting, diarrhea, constipation, melena, hematochezia Genitourinary: denies: dysuria, frequency, incontinence, hematuria - Medication Medications: Active Medications Generic Name Dose Route Start Last Admin Trade Name Freq PRN Reason Stop Dose Admin Acetaminophen 650 mg 05/06/19 21:00 05/07/19 08:22 Tylenol PO 650 mg BID JOSE Administration Amlodipine Besylate 10 mg 05/07/19 09:00 05/07/19 08:22 Norvasc PO 10 mg DAILY JOSE Administration Dextrose/Water 25 gm 05/07/19 12:12 05/07/19 14:52 Dextrose 50% SLOW IVP 25 gm PRN PRN Administration Hypoglycemia Enoxaparin Sodium 30 mg 05/06/19 09:00 05/06/19 08:41 Lovenox SC 30 mg 0900 JOSE Administration Gabapentin 600 mg 05/06/19 21:00 05/07/19 08:22 Neurontin PO 600 mg BID JOSE Administration Dextrose/Sodium Chloride 1,000 mls @ 100 mls/hr 05/07/19 12:15 05/07/19 13:08 D5 0.9% Ns IV 1,000 mls .Q10H JOSE Administration Lisinopril 20 mg 05/06/19 09:00 05/07/19 08:23 Zestril PO Not Given DAILY JOSE Morphine Sulfate 4 mg 05/06/19 15:26 05/07/19 05:07 Morphine SLOW IVP 4 mg Q4H PRN Administration Moderate Pain (4-6) Ondansetron HCl 4 mg 05/06/19 18:04 05/07/19 05:08 Zofran IVP 4 mg Q6H PRN Administration Nausea/Vomiting Simvastatin 10 mg 05/06/19 21:00 05/06/19 21:28 Zocor PO 10 mg HS JOSE Administration Sodium Chloride 10 ml 05/06/19 09:00 05/07/19 08:25 Flush - Normal Saline IVF 10 ml Q12HR JOSE Administration Trazodone HCl 100 mg 05/06/19 21:00 05/06/19 21:28 Desyrel PO 100 mg HS JOSE Administration - Exam General Appearance: NAD, awake alert General - other findings: emaciated ENT: moist mucosa Neck: no JVD Heart: no murmur, II/IV Respiratory: CTAB, no wheezes, no rales, no ronchi Gastrointestinal: soft, non-distended, normal bowel sounds Gastrointestinal - other findings: diffusely tender, better than yesterday Extremities: no edema Psychiatric: normal behavior, oriented to person, oriented to place. negative: oriented to time Hosp A/P - Plan #peritoneal carcinomatosis #gastroenteritis -MRI w/ w/o confirms peritoneal metasteses -pain improved today, no additional bowel movements or n/v -patient requests to eat; advanced to full liquid -continue IVF -pending ONC and palliative care eval #distended bladder -may be due to external obstruction or chronic opioid use (tramadol) -no renal dysfucntion -postvoid residual and straight cath if > 400cc; if doesn uriante within 6h, bladder scan #HTN -currently normotensive -continue home medications as well as IV antiHTN #T2DM -on oral medications at home -sliding scale; check glucose q4h as long as NPO Disposition/PPx full code per patient DVT PPx: lovenox GI PPx: pantoprazole for GERD
--- NOTE | 2019-05-07 15:13 | CON ---
DATE OF CONSULTATION: REASON FOR CONSULTATION: Ovarian cancer. HISTORY OF PRESENT ILLNESS: Ms. Kessler is a pleasant 78-year-old female who was diagnosed with stage III ovarian cancer in 11/2017. She underwent 6 cycles of carboplatin and Taxol and has been in remission. Since that time, she did have a bilateral salpingo-oophorectomy with omentectomy and appendectomy, had optimal tumor reductive surgery. She was last seen in our clinic in 12/2018, where she was having no bloating, bleeding, or weight loss. Her CA-125 had increased from 6 to 18.1 in December, still within normal range. She was to follow up in 3 months, but unfortunately due to the of her son, has not seen Dr. Perkins. She presented to the emergency room yesterday with complaints of nausea, vomiting, and diarrhea for one day. She had abdominal pain off and on and has been seen by GI in March. She underwent a CT scan of the chest, abdomen, and pelvis, which showed heterogeneous liver attenuation with some nodular changes. She also had residual disease in the right inferior retroperitoneum and lateral pelvis. She then underwent an MRI of her abdomen, which again confirmed the lesions in the liver and pelvis, confirmed the residual soft tissue mass of the right lower quadrant, it was consistent with peritoneal carcinomatosis. The patient's nausea has resolved. She continues to have diarrhea. No abdominal pain. She is taking p.o. at this time. She was seen at bedside with her daughter present. PAST MEDICAL HISTORY: 1. Stage III ovarian cancer, papillary serous carcinoma. 2. GERD. 3. Diabetes. 4. Hypertension. 5. High cholesterol. 6. Arthritis. 7. Peripheral vascular disease. 8. Chronic kidney disease. PAST SURGICAL HISTORY: 1. Hysterectomy. 2. Tonsillectomy. 3. Cholecystectomy. ALLERGIES: TO CODEINE AND SULFA. HOME MEDICATIONS: 1. Tylenol. 2. Flonase. 3. Gabapentin. 4. Glipizide. 5. Univasc. 6. Potassium chloride. 7. Zocor. 8. Trazodone. FAMILY HISTORY: Mother had breast cancer. SOCIAL HISTORY: She is , has 4 children. Lives with her daughter. Current everyday smoker. No alcohol or illicit drug use. REVIEW OF SYSTEMS: A 10-point review of systems is negative except for noted in HPI. PHYSICAL EXAMINATION: VITAL SIGNS: Temperature 98.6, pulse is 107, respiratory rate is 18, and BP is 124/70. GENERAL: A well-developed, well-nourished female, in no acute distress. HEENT: Normocephalic and atraumatic. Pupils are equal and reactive to light. NECK: Supple. CV: Regular rate and rhythm. LUNGS: Clear. ABDOMEN: Soft. It is nontender. Bowel sounds are positive. EXTREMITIES: No clubbing or cyanosis. SKIN: No rash. NEUROLOGIC: Nonfocal. PERTINENT LABORATORY DATA AND X-RAYS: Current WBCs are 7, hemoglobin 13.9, hematocrit 44.4, and platelet count is 199,000. She has 72% neutrophils and 25% lymphocytes. Sodium 140, potassium 4.1, chloride 112, CO2 is 14, BUN is 19, creatinine 0.95, and calcium is 9.5. Magnesium is 1.7. Bilirubin 0.3, AST is 13, ALT is less than 7, and alkaline phosphatase is 160. Serum total protein is 8.9, albumin 4.5, globulin 4.4, and lipase 57. CA-125 is 29. ASSESSMENT: 1. Stage III ovarian cancer with peritoneal carcinomatosis. 2. Acute onset of nausea, vomiting, and diarrhea. DISCUSSION: The patient's CA-125 has continued to slowly increase over the last 6 months. She will follow up with Dr. Perkins next week in the office to discuss further treatment as required. Her nausea has improved since admission. She remains on IV fluids and diarrhea management and will be discharged when she is clinically stable to see us next week. Thank you for the consult. Job ID: [id number]
[2019-05-07 15:50] LABS: Hemoglobin 11.4 g/dL (12.0-16.0)
[2019-05-07 16:31] LABS: Lactic Acid 18.1 mmol/L (0.5-2.2)
[2019-05-07 16:46] LABS: Glucose 199 mg/dL (83-110)
[2019-05-07] MEDS ORDERED: Vancomycin 1 GM in Premix Bag 1 BAG IVPB SCH ×2 (17:00→18:00)
[2019-05-07] MEDS ORDERED: Piperacillin/Tazobactam 4.5 GM in Sodium Chloride 0.9% 100 ML IVPB SCH (17:00)
[2019-05-07] MEDS ORDERED: Sodium Chloride 0.9% 1,000 ML IV SCH (17:00)
[2019-05-07] MEDS ORDERED: Haloperidol Lactate 5 MG/ML VIAL SLOW IVP PRN (17:59)
[2019-05-07] MEDS ORDERED: Morphine 2 MG/ML SYRINGE SLOW IVP SCH (18:00)
[2019-05-07] MEDS ORDERED: Morphine 2 MG/ML SYRINGE SLOW IVP PRN (18:59)
--- NOTE | 2019-05-08 00:34 | PDOC.EVN ---
Event Note - Event Note Event Note: After improvement in symptoms following admission, was notified by nurse at around 2pm that stool was collected after the patient had a big bowel movement mixed with blood. Went to see patient immediately, drowsy, confused. Gave NS bolus x 2, started vanc and zosyn. Lactate came back as 18. Ordered CT abdomen with IV contrast for suspceted ischemic colitis but patient decompensated. Transfered to [facility], daughter at bedside requested that I speak with granddaughter and RENU Verdugo. Explained to both radiologic evidence of progression of ovarian cancer, likely acute event, and patient's poor prognosis and likelihood of prompt worsening of her condition. The granddaughter was allowed to farewell Ms. Kessler and requested to transition to comfort care. The patient at 1931.
[2019-05-08] MEDS ORDERED: Fluticasone Propionate Nasal Spray 16 gm Bottle NASAL SCH (09:00)
--- NOTE | 2019-05-10 07:42 | DIS ---
DATE OF ADMISSION: 05/07/2019 DATE OF DISCHARGE: 05/07/2019 DATE OF EXPIRATION: May 07. Ms. Kessler is an 78-year-old female with medical history of ovarian cancer, last chemotherapy about a year ago, presented for nausea, vomiting, and diarrhea. The patient developed sudden onset of nausea, vomiting, and diarrhea. The day prior to admission, she had multiple loose bowel movements and could not keep anything orally, so the family brought her to the ED. The patient was diagnosed with acute gastroenteritis, and based on imaging, there was recurrence and spread of her ovarian cancer throughout the peritoneum and the liver. She was managed supportively and the day following the admission, improved. Her abdominal pain mostly resolved and she had no additional episodes of diarrhea. However, later that day, the patient had a large bloody bowel movement, blood pressure decreased, the patient became confused and hypoxic. Lactate was taken and it was 18, the patient received 2 L of nasal saline as a bolus, vancomycin and Zosyn were started for suspected sepsis due to possible perforation from ischemic colitis, and the patient was transferred to the IM. The daughter was at bedside and immediately notified regarding the most likely diagnosis as well as prognosis, and I requested to speak with the medical power of managing attorney, who is the patient's granddaughter. I explained over the phone the situation and the daughter came to the hospital within 10 minutes. Meanwhile, the patient was transferred to the IMCU. After deliberation considering the patient's family wishes, which may contraindicate the MPOA's and the wishes of the patient herself, it was decided to transition to the patient to comfort care. The patient was made comfortable and eventually due to asystole with family members at bedside. Time of expiration was 7:31 p.m. Job ID: [id number] MTDD
--- NOTE | 2019-05-13 09:22 | PQF ---
DIagnosis less likely septic shock but rather hypovolemic shock due to acute hemorrhage as a result of ischemic colitis. ELYSE MAGUIRE ADI [id number] CLINICAL DOCUMENTATION CLARIFICATION FORM: POST DISCHARGE Addendum to original discharge summary date: ____ Late entry note date: __ DATE: 05/13/2019 ATTN: ALEKSEY ELLIS Please exercise your independent, professional judgment in responding to the clarification form. Clinical indicators are provided on the bottom of this form for your review Diagnosis: Sepsis Present on Admission (POA): [ ] Yes [ ] No [ ] Unable to determine Coding guidelines require hospitals to identify whether a diagnosis was present on admission (POA) or not. To accurately assign the appropriate POA indicator, this information must be clearly documented within the medical record. CLINICAL INDICATORS - SIGNS / SYMPTOMS / LABS - Suspected sepsis due to possible perforation from ischemic colitis- DS, 04/18, ALEKSEY ELLIS - evidence of gastroenteritis- H&P, 05/05, ALEKSEY ELLIS - Temp: 97.3, RR: 20, Pulse: 86- H&P, 05/05CALEB ADI RISK FACTORS: - gastroenteritis- H&P, 05/05CALEB ADI TREATMENT: - Vancomycin.IV- 05/06 (This form is maintained as a part of the permanent medical record) 2014 [employer] All Rights Reserved [email or web address]
--- NOTE | 2019-05-20 02:17 | PQF ---
ELYSE MAGUIRE ADI [id number] CLINICAL DOCUMENTATION CLARIFICATION FORM: POST DISCHARGE Addendum to original discharge summary date: ____ Late entry note date: __ DATE:05/20/2019 ATTN:ALEKSEY JOHNSON Please exercise your independent, professional judgment in responding to the clarification form. Clinical indicators are provided on the bottom of this form for your review Please check appropriate box(s): [ x ] CKD please specify Stage of CKD____II [ ] ESRD [ ] Other diagnosis [ ] Unable to determine National Kidney Foundation Guidelines for CKD Staging Stage I Kidney damage with normal or increased GFRGFR > 90 Stage IIKidney damage with mildly decreased GFRGFR 60-89 Stage III Kidney damage with moderately decreased GFRGFR 30-59 Stage IVKidney damage with severely decreased GFRGFR 16-29 Stage VKidney failureGFR<15 ESRDEnd Stage Renal DiseaseOn dialysis Acute Renal Failure/Acute Kidney Failure defined as: Increases in SCr by (>) 0.3 mg/dl within 48 hours OR- Increases in SCr by (>) 1.5 times baseline, known or presumed to have occurred within the prior 7 days OR- Urine volume < 0.5 ml/kg/hour for 6 hours (KDIGO supplement 2012 for RIFLE/BONIFACIO criteria) For continuity of documentation, please document condition throughout progress notes and discharge summary. Thank You. CLINICAL INDICATORS - SIGNS / SYMPTOMS / LABS / RESULTS AND LOCATION IN [facility]: CKD- Palliative care consult, Aracely Barragan -BUN: 14 on 05/05, 19 on 05/06- Laboratory report -Creatinine: 0.94 on 05/05, 0.95 on 05/06- Laboratory report -Estimated GFR: 69 on 05/05, 68 on 05/06- Laboratory report RISK FACTORS / RESULTS AND LOCATION IN [facility] - HTN- Hospital PN, 05/06, Aleksey Johnson MD TREATMENTS / RESULTS AND LOCATION IN [facility] - Sodium chloride.IV- MAR, 04/25 (This form is maintained as a part of the permanent medical record) 2014 [email or web address]. All Rights Reserved Avni [email or web address]
--- NOTE | 2019-05-20 02:41 | PQF ---
ELYSE MAGUIRE ADI [id number] CLINICAL DOCUMENTATION CLARIFICATION FORM: POST DISCHARGE Addendum to original discharge summary date: ____ Late entry note date: __ DATE:05/20/2019 ATTN:ALEKSEY ELLIS Please exercise your independent, professional judgment in responding to the clarification form. Clinical indicators are provided on the bottom of this form for your review Please check appropriate box(s): [ x] Acute ischemic colitis [ ] Chronic ischemic colitis [ ] Other diagnosis [ ] Unable to determine For continuity of documentation, please document condition throughout progress notes and discharge summary. Thank You. CLINICAL INDICATORS - SIGNS / SYMPTOMS / LABS - suspected sepsis due to possible perforation from ischemic colitis- , 05/06 ELIZABETH ADI - presented for nausea and vomiting and diarrhea- , 05/06, ALEKSEY ELLIS - acute on chronic may be results of gastroenteritis- H&P, 05/05, Aleksey Ellis MD RISK FACTORS - PMH: GERD- H&P, 05/05Elizabeth Adi MD - PSH: Cholecystectomy- H&P, 05/05, Aleksey Ellis MD TREATMENT: -Ondansetron.IV- 05/05 -Protonix .PO- 05/05 (This form is maintained as a part of the permanent medical record) 2014 [employer] All Rights Reserved [email or web address]
== END 2019-05-07 19:31 | disposition expired | DRG 393 ==
LOC: ERS 02:33 → T4-A 05:26 → OBSVTOIN 05-07 16:20 → IMCU/EMU 05-07 17:40
PROVIDERS: ADMIT Internal Medicine; ATTEND Internal Medicine
DX: K55.039 Acute (reversible) ischemia of large intestine, extent unspecified (principal); K63.1 Perforation of intestine (nontraumatic); C78.6 Secondary malignant neoplasm of retroperitoneum and peritoneum; C56.9 Malignant neoplasm of unspecified ovary; C78.7 Secondary malignant neoplasm of liver and intrahepatic bile duct; R57.1 Hypovolemic shock; K21.9 Gastro-esophageal reflux disease without esophagitis; I73.9 Peripheral vascular disease, unspecified; E78.5 Hyperlipidemia, unspecified; F41.9 Anxiety disorder, unspecified; N32.89 Other specified disorders of bladder; Z51.5 Encounter for palliative care; E78.00 Pure hypercholesterolemia, unspecified; M19.90 Unspecified osteoarthritis, unspecified site; E11.22 Type 2 diabetes mellitus with diabetic chronic kidney disease; E11.40 Type 2 diabetes mellitus with diabetic neuropathy, unspecified; I12.9 Hypertensive chronic kidney disease with stage 1 through stage 4 chronic kidney disease, or unspecified chronic kidney disease; N18.2 Chronic kidney disease, stage 2 (mild); K52.9 Noninfective gastroenteritis and colitis, unspecified; F17.210 Nicotine dependence, cigarettes, uncomplicated; F32.9 Major depressive disorder, single episode, unspecified; Z79.4 Long term (current) use of insulin; Z90.49 Acquired absence of other specified parts of digestive tract; Z98.42 Cataract extraction status, left eye; Z98.41 Cataract extraction status, right eye; Z88.1 Allergy status to other antibiotic agents; Z88.2 Allergy status to sulfonamides; Z88.8 Allergy status to other drugs, medicaments and biological substances
CPT/HCPCS: 36415; 36416; 72197; 74177; 74183; 80048; 80053; 81003; 82274; 83605; 83630; 83690; 83735; 85014; 85018; 85025; 86304; 87045; 87046; 87427; 87449; 93005; 93010; 96361; 96374; 96375; 96376; C9113; J0360; J1630; J1650; J2270; J2405; Q9967